=== PATIENT | female | born 1940 | race Asian ===

== ENCOUNTER 2017-09-16 15:50 | Observation (INO) | payer OTHER ==
[~2017-09-16] VITALS: Ht 152.4 cm; Wt 53.6 kg
[~2017-09-16 15:50] MED LIST: AMLO5TAB2 PO; ATOR-2 PO; CARV12.52 PO; CLON0.1T PO; CLONIDINE TP; DOXA2TAB9 PO; FLUO20CA8 PO; FOLI0.8T7 PO; FURO20TA3 PO; LOSA100T6 PO; OMEG1CAP6 PO; OMEP-110 PO; TEMA30CA PO; TUMS PO; VITAMIN D2 PO
[2017-09-16] MEDS ORDERED: SODIUM CHLORIDE 0.9% 1,000ML IVBOLUS ONE (17:00)
[2017-09-16] MEDS ORDERED: SODIUM CHLORIDE FLUSH 10ML SYR IVF ONE (17:00)
[2017-09-16 17:38] LABS: BASOPHILS # (AUTO) 0.01 x10^3/uL (0-0.1); BASOPHILS % (AUTO) 0 % (0-1); EOSINOPHILS # (AUTO) 0.08 x10^3/uL (0-0.4); EOSINOPHILS % (AUTO) 1 % (1-7); LYMPHOCYTES # (AUTO) 1.68 x10^3/uL (1-3.4); LYMPHOCYTES % (AUTO) 25 % (22-44); MD NO; MEAN CORPUSCULAR HEMOGLOBIN 31.6 pg (27.0-34.8); MEAN CORPUSCULAR HGB CONC 34.3 g/dL (32.4-35.8); MEAN CORPUSCULAR VOLUME 92.2 fL (80-100); MEAN PLATELET VOLUME 6.4 fL (7.4-10.4); MONOCYTES # (AUTO) 0.54 x10^3/uL (0.2-0.8); MONOCYTES % (AUTO) 8 % (2-9); NEUTROPHILS # (AUTO) 4.38 x10^3/uL (1.8-6.8); NEUTROPHILS % (AUTO) 65 % (42-75); PLATELET COUNT 330 x10^3/uL (130-400); RED BLOOD COUNT 3.67 x10^6/uL (3.82-5.3); RED CELL DISTRIBUTION WIDTH 17.1 % (9.6-15.2)
[2017-09-16 17:43] LABS: ALANINE AMINOTRANSFERASE 16 U/L (12-78); ALBUMIN 2.9 g/dL (3.4-5.0); ANION GAP 9 mmol/L (5-15); CALCIUM 8.1 mg/dL (8.5-10.1); CHLORIDE 100 mmol/L (98-107); CREATININE 4.13 mg/dL (0.55-1.02)
[2017-09-16 17:46] LABS: ALKALINE PHOSPHATASE 79 U/L (45-117); BILIRUBIN,TOTAL 0.3 mg/dL (0.2-1.0); TOTAL PROTEIN 7.3 g/dL (6.4-8.2); TROPONIN I < 0.015 ng/mL (0.000-0.045)
[2017-09-16] MEDS ORDERED: FLUO40CA2 PO (18:49)
[2017-09-16] MEDS ORDERED: CYAN10005 PO (18:49)
[2017-09-16] MEDS ORDERED: SEVE800T8 PO (18:49)
[2017-09-16] MEDS ORDERED: ZINC OXIDE PO (18:49)
[2017-09-16] MEDS ORDERED: ONDANSETRON ODT 4 MG PO PRN (19:30)
[2017-09-16] MEDS ORDERED: LABETALOL 5MG/ML, 20ML IVPush PRN (19:30)
[2017-09-16] MEDS ORDERED: DOCUSATE 100 MG CAPSULE PO PRN (19:30)
[2017-09-16] MEDS ORDERED: ONDANSETRON 2MG/ML, 2ML IVPush PRN (19:30)
[2017-09-16] MEDS ORDERED: ACETAMINOPHEN 325 MG TABLET PO PRN (19:30)
[2017-09-16] MEDS ORDERED: BISACODYL 10 MG SUPP PR PRN (19:30)
[2017-09-16 20:00] VITALS: BP 135/71
[2017-09-16 20:01] VITALS: BP 121/69
[2017-09-16 20:01] LABS: HEMOGLOBIN A1C 5.5 % (4.2-6.3)
[2017-09-16 20:05] VITALS: BP 114/67
[2017-09-16] MEDS: CARVEDILOL 12.5 MG TABLET PO SCH (20:29)
[2017-09-16] MEDS: SILVER SULF. CRM 1% , 25GM TP SCH (20:29)
[2017-09-16] MEDS: AMLODIPINE 5 MG TABLET PO SCH (20:29)
[2017-09-16] MEDS: TEMAZEPAM 30 MG CAPSULE PO SCH (20:29)
[2017-09-16 20:44] VITALS: BP 135/71
[2017-09-17] VITALS (10 sets, daily range): BP systolic 94–136; BP diastolic 58–70
[2017-09-17 01:25] LABS: CULTURE INDICATED? YES; MICROSCOPIC INDICATED
[2017-09-17 05:14] LABS: BASOPHILS # (AUTO) 0.03 x10^3/uL (0-0.1); BASOPHILS % (AUTO) 1 % (0-1); EOSINOPHILS # (AUTO) 0.16 x10^3/uL (0-0.4); EOSINOPHILS % (AUTO) 3 % (1-7); LYMPHOCYTES # (AUTO) 2.22 x10^3/uL (1-3.4); LYMPHOCYTES % (AUTO) 42 % (22-44); MD NO; MEAN CORPUSCULAR HEMOGLOBIN 31.5 pg (27.0-34.8); MEAN CORPUSCULAR HGB CONC 34.1 g/dL (32.4-35.8); MEAN CORPUSCULAR VOLUME 92.5 fL (80-100); MEAN PLATELET VOLUME 6.5 fL (7.4-10.4); MONOCYTES # (AUTO) 0.45 x10^3/uL (0.2-0.8); MONOCYTES % (AUTO) 9 % (2-9); NEUTROPHILS # (AUTO) 2.41 x10^3/uL (1.8-6.8); NEUTROPHILS % (AUTO) 46 % (42-75); PLATELET COUNT 289 x10^3/uL (130-400); RED BLOOD COUNT 3.21 x10^6/uL (3.82-5.3); RED CELL DISTRIBUTION WIDTH 17.3 % (9.6-15.2)
[2017-09-17 05:24] LABS: ANION GAP 8 mmol/L (5-15); CALCIUM 8.8 mg/dL (8.5-10.1); CHLORIDE 103 mmol/L (98-107); CREATININE 5.26 mg/dL (0.55-1.02)
[2017-09-17] MEDS: SEVELAMER CARBONATE 800MG TAB PO SCH ×3 (08:25→16:39)
[2017-09-17] MEDS: FLUOXETINE HCL 20 MG CAPSULE PO SCH (08:26)
[2017-09-17] MEDS: OMEPRAZOLE 20 MG CAPSULE.DR PO SCH (08:26)
[2017-09-17] MEDS: CARVEDILOL 12.5 MG TABLET PO SCH ×2 (08:26→20:35)
[2017-09-17] MEDS: AMLODIPINE 5 MG TABLET PO SCH ×2 (08:26→20:35)
[2017-09-17] MEDS: OMEGA-3/FISH OIL CAPSULE PO SCH (08:26)
[2017-09-17] MEDS: ZINC SULFATE 220 MG TAB PO SCH (08:26)
[2017-09-17] MEDS: FOLIC ACID 1 MG TABLET PO SCH (08:26)
[2017-09-17] MEDS: SENNA/DOCUSATE TABLET PO SCH (08:27)
[2017-09-17] MEDS: CYANOCOBALAMIN 1,000 MCG TABLET PO SCH (08:27)
[2017-09-17] MEDS: SILVER SULF. CRM 1% , 25GM TP SCH ×2 (08:59→20:35)
[2017-09-17] MEDS: TEMAZEPAM 30 MG CAPSULE PO SCH (20:34)
[2017-09-18 03:34] VITALS: BP 125/65
[2017-09-18 03:35] VITALS: BP 112/76
[2017-09-18 03:36] VITALS: BP 99/59
[2017-09-18 07:55] VITALS: BP_SYST 119; BP_SYST 126; BP_SYST 135; BP_DIAS 69; BP_DIAS 72
[2017-09-18] MEDS: SEVELAMER CARBONATE 800MG TAB PO SCH ×2 (08:36→12:00)
[2017-09-18] MEDS: OMEPRAZOLE 20 MG CAPSULE.DR PO SCH (08:36)
[2017-09-18] MEDS: FOLIC ACID 1 MG TABLET PO SCH (08:37)
[2017-09-18] MEDS: OMEGA-3/FISH OIL CAPSULE PO SCH (08:37)
[2017-09-18] MEDS: ZINC SULFATE 220 MG TAB PO SCH (08:37)
[2017-09-18] MEDS: CARVEDILOL 12.5 MG TABLET PO SCH (08:37)
[2017-09-18] MEDS: AMLODIPINE 5 MG TABLET PO SCH (08:37)
[2017-09-18] MEDS: CYANOCOBALAMIN 1,000 MCG TABLET PO SCH (08:37)
[2017-09-18] MEDS: SENNA/DOCUSATE TABLET PO SCH (08:37)
[2017-09-18] MEDS: FLUOXETINE HCL 20 MG CAPSULE PO SCH (08:37)
[2017-09-18] MEDS: SILVER SULF. CRM 1% , 25GM TP SCH (08:38)
== END 2017-09-18 14:25 | disposition home or self-care (01) ==
LOC: ED 18:18 → INTOOBSV 18:40 → EDIP 18:40 → 4WST 19:32
PROVIDERS: ADMIT Hospitalist; ATTEND Hospitalist
DX: R55 Syncope and collapse (principal); G90.9 Disorder of the autonomic nervous system, unspecified; N18.6 End stage renal disease; D63.8 Anemia in other chronic diseases classified elsewhere; E44.0 Moderate protein-calorie malnutrition; I12.0 Hypertensive chronic kidney disease with stage 5 chronic kidney disease or end stage renal disease; K21.9 Gastro-esophageal reflux disease without esophagitis; Z99.2 Dependence on renal dialysis; E88.09 Other disorders of plasma-protein metabolism, not elsewhere classified; F32.9 Major depressive disorder, single episode, unspecified; T24.002A Burn of unspecified degree of unspecified site of left lower limb, except ankle and foot, initial encounter; Y92.89 Other specified places as the place of occurrence of the external cause; Y93.89 Activity, other specified; Y99.8 Other external cause status
CPT/HCPCS: 36415; 70450; 71046; 80048; 80053; 81001; 82962; 83036; 83735; 84100; 84443; 84484; 85025; 87086; 93005; 93306; 93880; 99285; G0378; J7030

== ENCOUNTER → 2017-11-03 | Outpatient (CLI) | payer OTHER ==
[~2017-11-03] MED LIST changes: -AMLO5TAB2 PO; +AMLO5TAB7 PO; +CYAN10005 PO; +FLUO40CA2 PO; -LOSA100T6 PO; +LOSA100T7 PO; +SEVE800T8 PO; +ZINC OXIDE PO
== END | disposition home or self-care (01) ==
LOC: CFH 11:10
PROVIDERS: ATTEND Nurse Practitioner
DX: M81.0 Age-related osteoporosis without current pathological fracture (principal); N95.8 Other specified menopausal and perimenopausal disorders
CPT/HCPCS: 77080

== ENCOUNTER → 2017-12-29 | Outpatient (CLI) | payer MEDICARE, OTHER ==
[~2017-12-29] MED LIST changes: +ALEN70TA5 PO; +ASCO10004 PO; +CARV-39 PO; +CHOL10003 PO; +TRAZ-136 PO; +ZINC50TA28 PO
[2017-12-29 12:23] LABS: BASOPHILS # (AUTO) 0.03 x10^3/uL (0-0.1); BASOPHILS % (AUTO) 1 % (0-1); EOSINOPHILS # (AUTO) 0.35 x10^3/uL (0-0.4); EOSINOPHILS % (AUTO) 6 % (1-7); LYMPHOCYTES # (AUTO) 2.22 x10^3/uL (1-3.4); LYMPHOCYTES % (AUTO) 36 % (22-44); MD NO; MEAN CORPUSCULAR HEMOGLOBIN 31.3 pg (27.0-34.8); MEAN CORPUSCULAR HGB CONC 33.6 g/dL (32.4-35.8); MEAN CORPUSCULAR VOLUME 93.2 fL (80-100); MEAN PLATELET VOLUME 6.7 fL (7.4-10.4); MONOCYTES # (AUTO) 0.46 x10^3/uL (0.2-0.8); MONOCYTES % (AUTO) 7 % (2-9); NEUTROPHILS # (AUTO) 3.17 x10^3/uL (1.8-6.8); NEUTROPHILS % (AUTO) 51 % (42-75); PLATELET COUNT 283 x10^3/uL (130-400); RED BLOOD COUNT 3.84 x10^6/uL (3.82-5.3); RED CELL DISTRIBUTION WIDTH 14.6 % (9.6-15.2)
[2017-12-29 12:35] LABS: INTERNATIONAL NORMALIZED RATIO 0.96 (0.93-1.1)
[2017-12-29 12:37] LABS: ALBUMIN 3.4 g/dL (3.4-5.0); ANION GAP 8 mmol/L (5-15); CALCIUM 9.3 mg/dL (8.5-10.1); CHLORIDE 100 mmol/L (98-107)
[2017-12-29 12:40] LABS: ALANINE AMINOTRANSFERASE 19 U/L (12-78); ALKALINE PHOSPHATASE 88 U/L (45-117); BILIRUBIN,TOTAL 0.4 mg/dL (0.2-1.0); CREATININE 4.89 mg/dL (0.55-1.02)
== END | disposition home or self-care (01) ==
LOC: STAR 11:25
PROVIDERS: ATTEND Internal Medicine
DX: Z01.818 Encounter for other preprocedural examination (principal); R12 Heartburn; R19.7 Diarrhea, unspecified
CPT/HCPCS: 36415; 80053; 85025; 85610; 85730; 93005

== ENCOUNTER 2018-01-05 09:51 | Day surgery (SDC) | payer MEDICARE, OTHER ==
[2017-12-29 12:27] VITALS: BP 185/100
[~2018-01-05] VITALS: Ht 152.4 cm; Wt 48.5 kg
[2018-01-05] MEDS ORDERED: SODIUM CHLORIDE 0.9% 1,000 ML IV SCH (10:36)
[2018-01-05] MEDS ORDERED: CARVEDILOL 25 MG TABLET PO ONE (11:30)
[2018-01-05] MEDS ORDERED: MEPERIDINE/PF 25MG/0.5ML IVPush PRN (13:00)
[2018-01-05] MEDS ORDERED: HALOPERIDOL 5 MG/ML IV PRN (13:00)
[2018-01-05] MEDS ORDERED: OXYcodone 5 MG/5 ML ORAL.SOL UDC PO PRN (13:00)
[2018-01-05] MEDS ORDERED: PROMETHAZINE 12.5 MG SUPP PR PRN (13:00)
[2018-01-05] MEDS ORDERED: MIDAZOLAM 1 MG/ML, 2ML IV PRN (13:00)
[2018-01-05] MEDS ORDERED: PROMETHAZINE 25 MG/ML, 1ML IV PRN (13:00)
[2018-01-05] MEDS ORDERED: hydrALAzine 20 MG/ML, 1ML IV PRN (13:00)
[2018-01-05] MEDS ORDERED: ALBUTEROL SULFATE 2.5 MG/3 ML NPPB PRN (13:00)
[2018-01-05] MEDS ORDERED: FENTANYL PF 100 MCG/2ML IV PRN (13:00)
[2018-01-05] MEDS ORDERED: EPHEDRINE 50 MG/ML, 1ML IVPush PRN (13:00)
[2018-01-05] MEDS ORDERED: LABETALOL 5MG/ML, 20ML IV PRN (13:00)
[2018-01-05] MEDS ORDERED: ACETAMINOPHEN 325 MG TABLET PO PRN (13:00)
[2018-01-05] MEDS ORDERED: ONDANSETRON 2MG/ML, 2ML IV PRN (13:00)
[2018-01-05] MEDS ORDERED: ONDANSETRON ODT 8 MG PO PRN (13:00)
[2018-01-05] MEDS ORDERED: HYDROmorphone 1 MG/ML, 1ML IV PRN (13:00)
[2018-01-05] MEDS ORDERED: LORazepam 2 MG/ML, 1ML IVPush PRN (13:00)
[2018-01-05] MEDS ORDERED: PROPOFOL 10 MG/ML, 20ML ONE (15:20)
== END 2018-01-05 13:40 | disposition home or self-care (01) ==
LOC: OUT 09:51
PROVIDERS: ATTEND Internal Medicine
DX: K31.89 Other diseases of stomach and duodenum (principal); K21.9 Gastro-esophageal reflux disease without esophagitis; I10 Essential (primary) hypertension; F31.9 Bipolar disorder, unspecified; E78.5 Hyperlipidemia, unspecified; Z98.890 Other specified postprocedural states
CPT/HCPCS: 43239; 45380; 88305; J2704; J7030

== ENCOUNTER 2019-03-02 23:02 | Observation (INO) | payer MEDICARE ==
[~2019-03-02] VITALS: Ht 152.4 cm; Wt 53.3 kg
[~2019-03-02 23:02] MED LIST changes: -ALEN70TA5 PO; +ALEN70TA6 PO; +AMLO-150 PO; -AMLO5TAB7 PO; -CLON0.1T PO; +CLON0.1T22 PO; +CYAN-27 PO; -CYAN10005 PO; +FLUO20CA23 PO; -FLUO20CA8 PO; +LOSA100T14 PO; -LOSA100T7 PO; -TRAZ-136 PO; +TRAZ50TA66 PO; -ZINC50TA28 PO; +ZINC50TA44 PO
[2019-03-02] MEDS ORDERED: CINA30TA2 PO (23:33)
[2019-03-02] MEDS ORDERED: FOLI0.8T35 PO (23:34)
[2019-03-02] MEDS ORDERED: MONT10TA11 PO (23:35)
[2019-03-02] MEDS ORDERED: SEVE800T8 PO (23:35)
[2019-03-02] MEDS ORDERED: BUDE10.22 INH (23:37)
--- NOTE | 2019-03-02 23:37 | NUR ---
THIS IS A 78 YO FEMALE COMING IN FOR HTN AFTER DIALYSIS TODAY, AND STATEMENTS OF SI, PATIENT STATES "I WANT TO TAKE ALL MY PILLS, AND I JUST FEEL DEPRESSED". PATIENT HAS HX OF SA 20 YEARS AGO. PER PATIENT'S SON, "SHE LOST HER A COUPLE YEARS AGO AND LIVES WITH US NOW, SHE'S JUST BEEN RESTLESS AND KIND OF OUT OF IT. SHE SEEMS CONFUSED TOO". PATIENT ADMITS TO HEARING VOICES, BUT STATES "THEY'RE TELLING ME GOOD THINGS". 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 HX KIDNEY FAILURE, PATIENT HAS BEEN ON DIALYSIS FOR PAST 4 YEARS, CURRENTLY HAS IT DONE EVERY MWF. PATIENT WAS HYPERTENSIVE IN TRIAGE, OTHERWISE VSS, NAD. PATIENT BELONGINGS PLACED IN TWO BELONGINGS BAG AND PUT IN LOCKED STORAGE. PATIENT IN GOWN, GIVEN WARM BLANKET. EDUCATED ON NEED FOR URINE SAMPLE. SITTER AT DOOR.
[2019-03-02 23:48] LABS: BASOPHILS # (AUTO) 0.03 x10^3/uL (0-0.1); BASOPHILS % (AUTO) 1 % (0-1); EOSINOPHILS # (AUTO) 0.25 x10^3/uL (0-0.4); EOSINOPHILS % (AUTO) 4 % (1-7); LYMPHOCYTES # (AUTO) 1.22 x10^3/uL (1-3.4); LYMPHOCYTES % (AUTO) 19 % (22-44); MD NO; MEAN CORPUSCULAR HEMOGLOBIN 31.4 pg (27.0-34.8); MEAN CORPUSCULAR HGB CONC 33.6 g/dL (32.4-35.8); MEAN CORPUSCULAR VOLUME 93.5 fL (80-100); MEAN PLATELET VOLUME 6.2 fL (7.4-10.4); MONOCYTES # (AUTO) 0.66 x10^3/uL (0.2-0.8); MONOCYTES % (AUTO) 10 % (2-9); NEUTROPHILS # (AUTO) 4.23 x10^3/uL (1.8-6.8); NEUTROPHILS % (AUTO) 66 % (42-75); PLATELET COUNT 238 x10^3/uL (130-400); RED BLOOD COUNT 3.02 x10^6/uL (3.82-5.3)
[2019-03-02 23:53] LABS: ALANINE AMINOTRANSFERASE 30 U/L (12-78); ALBUMIN 3.1 g/dL (3.4-5.0); ANION GAP 7 mmol/L (5-15); CALCIUM 9.4 mg/dL (8.5-10.1); CHLORIDE 98 mmol/L (98-107); CREATININE 3.87 mg/dL (0.55-1.02)
[2019-03-03 00:03] LABS: ALKALINE PHOSPHATASE 57 U/L (45-117); BILIRUBIN,TOTAL 0.3 mg/dL (0.2-1.0); TOTAL PROTEIN 7.3 g/dL (6.4-8.2)
--- NOTE | 2019-03-03 00:23 | NUR ---
UA SENT. PIV PLACED
[2019-03-03 00:30] LABS: MICROSCOPIC AUTO
[2019-03-03 00:37] LABS: CULTURE INDICATED? NO
[2019-03-03 00:46] LABS: AMPHETAMINE SCREEN, URINE Negative (Negative); BARBITURATE SCREEN, URINE Negative (Negative); BENZODIAZEPINE SCREEN, URINE Negative (Negative); CANNABINOID SCREEN, URINE Negative (Negative); COCAINE SCREEN, URINE Negative (Negative); METHADONE SCREEN, URINE Negative (Negative); OPIATE SCREEN, URINE Negative (Negative)
[2019-03-03] MEDS ORDERED: ONDANSETRON ODT 4 MG PO PRN (01:00)
[2019-03-03] MEDS ORDERED: hydrALAzine 20 MG/ML, 1ML IVPush PRN (01:00)
[2019-03-03] MEDS ORDERED: TRAZODONE 50MG TABLET PO SCH (01:00)
[2019-03-03] MEDS ORDERED: BISACODYL 10 MG SUPP PR PRN (01:00)
--- NOTE | 2019-03-03 01:02 | NUR ---
REPORT GIVEN TO MARCUS MATSON. PLAN OF CARE DISCUSSED. Addendum: 03/03/19 at 0103 by DEXTER CHARTED UNDER WRONG USER. CORRECTION: REPORT GIVEN TO MARCUS MATSON BY MARCUS COWAN. PLAN OF CARE DISCUSSED.
--- NOTE | 2019-03-03 01:05 | NUR ---
CALL PLACED TO SON TO INFORM HIM OF MOTHERS ADMITTING ROOM NUMBER
[2019-03-03 01:34] VITALS: BP 197/68
[2019-03-03] MEDS: LORazepam 0.5MG TABLET PO PRN ×3 (01:54→22:08)
[2019-03-03 02:46] VITALS: BP 181/62
[2019-03-03 03:33] VITALS: BP 157/61
[2019-03-03] MEDS: HEPARIN 5,000 UNITS/ML, 1ML SQ SCH ×2 (06:04→17:45)
[2019-03-03] MEDS: SEVELAMER CARBONATE 800MG TAB PO SCH ×7 (06:11→21:11)
[2019-03-03] MEDS ORDERED: ALENDRONATE 70 MG TABLET PO SCH (06:30)
[2019-03-03 08:01] VITALS: BP 174/67
[2019-03-03] MEDS: MONTELUKAST 10 MG TABLET PO SCH (08:02)
[2019-03-03] MEDS: OMEGA-3/FISH OIL CAPSULE PO SCH (08:02)
[2019-03-03] MEDS: FLUOXETINE HCL 20 MG CAPSULE PO SCH (08:02)
[2019-03-03] MEDS: CHOLECALCIFEROL 1,000 UNIT TABLET PO SCH (08:02)
[2019-03-03] MEDS: AMLODIPINE 5 MG TABLET PO SCH ×2 (08:02→21:11)
[2019-03-03] MEDS: CYANOCOBALAMIN 1,000 MCG TABLET PO SCH (08:02)
[2019-03-03] MEDS ORDERED: CARVEDILOL 25 MG TABLET PO SCH (09:00)
[2019-03-03] MEDS: ZINC SULFATE 220 MG CAPSULE PO SCH (12:48)
[2019-03-03 13:52] VITALS: BP 136/64
[2019-03-03 16:41] LABS: ANION GAP 5 mmol/L (5-15); CALCIUM 9.6 mg/dL (8.5-10.1); CHLORIDE 102 mmol/L (98-107); CREATININE 5.18 mg/dL (0.55-1.02)
[2019-03-03] MEDS ORDERED: ARANESP 60 MCG/ML **ESRD SQ SCH (18:00)
[2019-03-03] MEDS: ACETAMINOPHEN 325 MG TABLET PO PRN (20:45)
[2019-03-03] MEDS: QUETIAPINE 100MG TABLET PO SCH (21:12)
[2019-03-03 21:45] VITALS: BP 138/66
[2019-03-03] MEDS ORDERED: ALBUTEROL SULFATE 2.5 MG/3 ML ONE (22:15)
[2019-03-03] MEDS ORDERED: ALBUTEROL SULFATE 2.5 MG/3 ML NPPB PRN (22:30)
[2019-03-04] MEDS: HEPARIN 5,000 UNITS/ML, 1ML SQ SCH ×3 (02:04→21:43)
[2019-03-04] MEDS: LORazepam 0.5MG TABLET PO PRN (02:04)
[2019-03-04 02:11] VITALS: BP 154/62
[2019-03-04] MEDS: SEVELAMER CARBONATE 800MG TAB PO SCH ×5 (06:00→21:42)
[2019-03-04] MEDS ORDERED: ALBUTEROL/IPRATROPIUM 2.5MG/0.5MG, 3 ML NPPB SCH (07:00)
[2019-03-04] MEDS: BUDESONIDE 0.5 MG/2 ML INHA NPPB SCH ×2 (07:05→18:20)
[2019-03-04 07:07] LABS: BASOPHILS # (AUTO) 0.02 x10^3/uL (0-0.1); BASOPHILS % (AUTO) 0 % (0-1); EOSINOPHILS # (AUTO) 0.44 x10^3/uL (0-0.4); EOSINOPHILS % (AUTO) 7 % (1-7); LYMPHOCYTES # (AUTO) 1.92 x10^3/uL (1-3.4); LYMPHOCYTES % (AUTO) 32 % (22-44); MD NO; MEAN CORPUSCULAR HEMOGLOBIN 31.3 pg (27.0-34.8); MEAN CORPUSCULAR HGB CONC 32.8 g/dL (32.4-35.8); MEAN CORPUSCULAR VOLUME 95.5 fL (80-100); MONOCYTES # (AUTO) 0.65 x10^3/uL (0.2-0.8); MONOCYTES % (AUTO) 11 % (2-9); NEUTROPHILS # (AUTO) 2.95 x10^3/uL (1.8-6.8); NEUTROPHILS % (AUTO) 49 % (42-75); PLATELET COUNT 253 x10^3/uL (130-400); RED BLOOD COUNT 2.73 x10^6/uL (3.82-5.3); RED CELL DISTRIBUTION WIDTH 16.5 % (9.6-15.2)
[2019-03-04 07:16] LABS: ANION GAP 7 mmol/L (5-15); CALCIUM 9.8 mg/dL (8.5-10.1); CHLORIDE 103 mmol/L (98-107)
[2019-03-04 08:35] VITALS: BP 171/70
[2019-03-04] MEDS: CHOLECALCIFEROL 1,000 UNIT TABLET PO SCH (08:55)
[2019-03-04] MEDS: CYANOCOBALAMIN 1,000 MCG TABLET PO SCH (08:55)
[2019-03-04] MEDS: FLUOXETINE HCL 20 MG CAPSULE PO SCH (08:55)
[2019-03-04] MEDS: ZINC SULFATE 220 MG CAPSULE PO SCH (08:55)
[2019-03-04] MEDS: OMEGA-3/FISH OIL CAPSULE PO SCH (08:55)
[2019-03-04] MEDS: CARVEDILOL 25 MG TABLET PO SCH ×2 (08:56→21:42)
[2019-03-04] MEDS: AMLODIPINE 5 MG TABLET PO SCH ×2 (08:56→21:43)
[2019-03-04] MEDS: MONTELUKAST 10 MG TABLET PO SCH (11:14)
[2019-03-04 12:48] VITALS: BP 145/64
[2019-03-04] MEDS: ALBUTEROL/IPRATROPIUM 2.5MG/0.5MG, 3 ML NPPB SCH (18:20)
[2019-03-04 21:41] VITALS: BP 150/76
[2019-03-04] MEDS: QUETIAPINE 100MG TABLET PO SCH (21:43)
[2019-03-05] MEDS: ACETAMINOPHEN 325 MG TABLET PO PRN ×2 (01:24→10:00)
[2019-03-05 01:59] VITALS: BP 132/57
[2019-03-05] MEDS: HEPARIN 5,000 UNITS/ML, 1ML SQ SCH ×2 (06:04→15:29)
[2019-03-05 06:26] LABS: BASOPHILS # (AUTO) 0.02 x10^3/uL (0-0.1); BASOPHILS % (AUTO) 0 % (0-1); EOSINOPHILS % (AUTO) 6 % (1-7); LYMPHOCYTES # (AUTO) 2.03 x10^3/uL (1-3.4); LYMPHOCYTES % (AUTO) 28 % (22-44); MD NO; MEAN CORPUSCULAR HEMOGLOBIN 31.3 pg (27.0-34.8); MEAN CORPUSCULAR HGB CONC 32.9 g/dL (32.4-35.8); MEAN CORPUSCULAR VOLUME 95.2 fL (80-100); MEAN PLATELET VOLUME 6.1 fL (7.4-10.4); MONOCYTES # (AUTO) 0.75 x10^3/uL (0.2-0.8); MONOCYTES % (AUTO) 10 % (2-9); NEUTROPHILS # (AUTO) 4.09 x10^3/uL (1.8-6.8); NEUTROPHILS % (AUTO) 56 % (42-75); PLATELET COUNT 257 x10^3/uL (130-400); RED BLOOD COUNT 2.52 x10^6/uL (3.82-5.3); RED CELL DISTRIBUTION WIDTH 16.9 % (9.6-15.2)
[2019-03-05 06:29] LABS: ALBUMIN 2.6 g/dL (3.4-5.0); ANION GAP 8 mmol/L (5-15); CALCIUM 9.3 mg/dL (8.5-10.1); CHLORIDE 102 mmol/L (98-107)
[2019-03-05 06:34] LABS: % IRON SATURATION 12 % (20-55); ALANINE AMINOTRANSFERASE 26 U/L (12-78); ALKALINE PHOSPHATASE 41 U/L (45-117); BILIRUBIN,TOTAL 0.3 mg/dL (0.2-1.0); CREATININE 7.49 mg/dL (0.55-1.02); IRON LEVEL 22 mcg/dL (50-170); TOTAL IRON BINDING CAPACITY 184 mcg/dL (250-450); TOTAL PROTEIN 6.1 g/dL (6.4-8.2)
[2019-03-05] MEDS: SEVELAMER CARBONATE 800MG TAB PO SCH ×3 (08:00→15:55)
[2019-03-05 09:00] VITALS: BP 146/64
[2019-03-05] MEDS ORDERED: LISINOPRIL 10 MG TABLET PO SCH (09:00)
[2019-03-05] MEDS: ALBUTEROL/IPRATROPIUM 2.5MG/0.5MG, 3 ML NPPB SCH (09:00)
[2019-03-05] MEDS: BUDESONIDE 0.5 MG/2 ML INHA NPPB SCH (09:00)
[2019-03-05] MEDS: CHOLECALCIFEROL 1,000 UNIT TABLET PO SCH (12:43)
[2019-03-05] MEDS: FLUOXETINE HCL 20 MG CAPSULE PO SCH (12:44)
[2019-03-05] MEDS: MONTELUKAST 10 MG TABLET PO SCH (12:44)
[2019-03-05] MEDS: OMEGA-3/FISH OIL CAPSULE PO SCH (12:44)
[2019-03-05] MEDS: AMLODIPINE 5 MG TABLET PO SCH (12:44)
[2019-03-05] MEDS: CARVEDILOL 25 MG TABLET PO SCH (12:44)
[2019-03-05] MEDS: ZINC SULFATE 220 MG CAPSULE PO SCH (12:44)
[2019-03-05] MEDS: CYANOCOBALAMIN 1,000 MCG TABLET PO SCH (12:44)
[2019-03-05 14:26] VITALS: BP 116/63
[2019-03-05] MEDS ORDERED: CARV25TA12 PO (16:35)
[2019-03-05] MEDS ORDERED: DARB60VI SQ (16:35)
[2019-03-05] MEDS ORDERED: LISI-167 PO (16:35)
[2019-03-05] MEDS ORDERED: QUET100T PO (16:35)
[2019-03-12] MEDS ORDERED: FLUO20CA23 PO (13:12)
[2019-03-12] MEDS ORDERED: ROPI0.5T4 PO (13:12)
[2019-03-16] MEDS ORDERED: HYDR50TA99 PO (10:44)
== END 2019-03-05 18:00 ==
LOC: ED 03-03 00:28 → EDIP 03-03 00:46 → INTOOBSV 03-03 00:46 → 4EST 03-03 01:26
PROVIDERS: ADMIT Family Medicine; ATTEND Hospitalist
PROC: 5A1D70Z Performance of Urinary Filtration, Intermittent, Less than 6 Hours Per Day (ICD-10-PCS; principal; 2019-03-05)
DX: F33.3 Major depressive disorder, recurrent, severe with psychotic symptoms (principal); R45.851 Suicidal ideations; I13.11 Hypertensive heart and chronic kidney disease without heart failure, with stage 5 chronic kidney disease, or end stage renal disease; N18.6 End stage renal disease; D63.1 Anemia in chronic kidney disease; J45.909 Unspecified asthma, uncomplicated; M81.0 Age-related osteoporosis without current pathological fracture; N25.0 Renal osteodystrophy; Z79.899 Other long term (current) drug therapy; Z91.5 Personal history of self-harm; Z99.2 Dependence on renal dialysis
CPT/HCPCS: 36415; 80048; 80053; 80307; 81001; 82306; 82728; 83540; 83550; 83735; 83970; 84100; 84443; 84550; 85025; 86705; 86706; 87340; 94640; 96372; 96374; 99285; G0378; J0360; J0882; J1644; J7620; J7626; Q0162; 90935

== ENCOUNTER 2019-03-05 16:04 | Inpatient (IN) | payer MEDICARE ==
[~2019-03-05] VITALS: Ht 152.4 cm; Wt 50.1 kg
[~2019-03-05 16:04] MED LIST changes: +BUDE10.22 INH; +CINA30TA2 PO; -FLUO20CA23 PO; +FLUO20CA8 PO; +FOLI0.8T35 PO; +MONT10TA9 PO
[2019-03-05] MEDS ORDERED: LISI-167 PO (16:35)
[2019-03-05] MEDS ORDERED: QUET100T PO (16:35)
[2019-03-05] MEDS ORDERED: DARB60VI SQ (16:35)
[2019-03-05] MEDS ORDERED: CARV25TA12 PO (16:35)
[2019-03-05] MEDS ORDERED: ONDANSETRON ODT 4 MG PO PRN ×2 (17:30)
[2019-03-05] MEDS ORDERED: DOCUSATE 100 MG CAPSULE PO PRN (17:30)
[2019-03-05] MEDS ORDERED: BISACODYL 10 MG SUPP PR PRN (17:30)
[2019-03-05] MEDS ORDERED: PLEASE ENTER HEIGHT AND WEIGHT MC SCH (18:30)
[2019-03-05 19:55] VITALS: BP 127/62
[2019-03-05] MEDS: SEVELAMER CARBONATE 800MG TAB PO SCH ×2 (20:56→21:14)
[2019-03-05] MEDS: AMLODIPINE 5 MG TABLET PO SCH (20:56)
[2019-03-05] MEDS: QUETIAPINE 200 MG TABLET PO SCH (20:56)
[2019-03-05] MEDS: ALBUTEROL/IPRATROPIUM 2.5MG/0.5MG, 3 ML NPPB SCH (21:27)
[2019-03-05] MEDS: BUDESONIDE 0.5 MG/2 ML INHA INH SCH (21:28)
[2019-03-05 22:27] VITALS: BP 127/62
[2019-03-05] MEDS: LORazepam 0.5MG TABLET PO PRN (22:51)
[2019-03-06] MEDS: HEPARIN 5,000 UNITS/ML, 1ML SQ SCH ×2 (02:00→09:31)
[2019-03-06] MEDS: SEVELAMER CARBONATE 800MG TAB PO SCH ×5 (06:41→21:13)
[2019-03-06 07:36] VITALS: BP 155/63
[2019-03-06] MEDS: ACETAMINOPHEN 325 MG TABLET PO PRN ×2 (07:49→19:47)
[2019-03-06] MEDS: ALBUTEROL/IPRATROPIUM 2.5MG/0.5MG, 3 ML NPPB SCH ×2 (09:00→20:50)
[2019-03-06] MEDS ORDERED: FLUOXETINE HCL 20 MG CAPSULE PO SCH (09:00)
[2019-03-06] MEDS: BUDESONIDE 0.5 MG/2 ML INHA INH SCH ×2 (09:00→20:50)
[2019-03-06] MEDS: OMEGA-3/FISH OIL CAPSULE PO SCH (09:01)
[2019-03-06] MEDS: CHOLECALCIFEROL 1,000 UNIT TABLET PO SCH (09:01)
[2019-03-06] MEDS: CYANOCOBALAMIN 1,000 MCG TABLET PO SCH (09:01)
[2019-03-06] MEDS: AMLODIPINE 5 MG TABLET PO SCH ×2 (09:01→21:13)
[2019-03-06] MEDS: LISINOPRIL 10 MG TABLET PO SCH (09:01)
[2019-03-06] MEDS: MONTELUKAST 10 MG TABLET PO SCH (09:01)
[2019-03-06] MEDS: CARVEDILOL 25 MG TABLET PO SCH ×2 (09:04→18:02)
[2019-03-06] MEDS: ZINC SULFATE 220 MG CAPSULE PO SCH (09:30)
[2019-03-06 19:15] VITALS: BP 151/85
[2019-03-06] MEDS: ROPINIROLE 0.5MG TABLET PO SCH (21:13)
[2019-03-06] MEDS: QUETIAPINE 200 MG TABLET PO SCH (21:14)
[2019-03-07] MEDS: CARVEDILOL 25 MG TABLET PO SCH ×2 (05:43→18:07)
[2019-03-07] MEDS: SEVELAMER CARBONATE 800MG TAB PO SCH ×5 (05:44→20:24)
[2019-03-07 07:08] VITALS: BP 151/66
[2019-03-07] MEDS: AMLODIPINE 5 MG TABLET PO SCH ×2 (11:00→20:24)
[2019-03-07] MEDS: LISINOPRIL 10 MG TABLET PO SCH (11:00)
[2019-03-07 11:59] VITALS: BP 113/65
[2019-03-07] MEDS: CYANOCOBALAMIN 1,000 MCG TABLET PO SCH (13:00)
[2019-03-07] MEDS: OMEGA-3/FISH OIL CAPSULE PO SCH (13:01)
[2019-03-07] MEDS: MONTELUKAST 10 MG TABLET PO SCH (13:01)
[2019-03-07] MEDS: FLUOXETINE HCL 20 MG CAPSULE PO SCH (13:01)
[2019-03-07] MEDS: CHOLECALCIFEROL 1,000 UNIT TABLET PO SCH (13:01)
[2019-03-07] MEDS: ZINC SULFATE 220 MG CAPSULE PO SCH (13:01)
[2019-03-07] MEDS: ALBUTEROL/IPRATROPIUM 2.5MG/0.5MG, 3 ML NPPB SCH ×2 (13:58→21:00)
[2019-03-07] MEDS: BUDESONIDE 0.5 MG/2 ML INHA INH SCH ×2 (13:58→21:00)
[2019-03-07 18:07] VITALS: BP 135/66
[2019-03-07 19:15] VITALS: BP 136/62
[2019-03-07] MEDS: QUETIAPINE 200 MG TABLET PO SCH (20:24)
[2019-03-07] MEDS: ROPINIROLE 0.5MG TABLET PO SCH (20:24)
[2019-03-08] MEDS: SEVELAMER CARBONATE 800MG TAB PO SCH ×5 (06:05→20:03)
[2019-03-08] MEDS: CARVEDILOL 25 MG TABLET PO SCH ×2 (06:05→18:21)
[2019-03-08 06:24] LABS: ALBUMIN 2.7 g/dL (3.4-5.0); ANION GAP 6 mmol/L (5-15); CALCIUM 9.9 mg/dL (8.5-10.1); CHLORIDE 102 mmol/L (98-107)
[2019-03-08 06:25] LABS: CREATININE 4.91 mg/dL (0.55-1.02)
[2019-03-08 07:41] VITALS: BP 169/62
[2019-03-08] MEDS: BUDESONIDE 0.5 MG/2 ML INHA INH SCH ×2 (09:35→21:00)
[2019-03-08] MEDS: ALBUTEROL/IPRATROPIUM 2.5MG/0.5MG, 3 ML NPPB SCH ×2 (09:35→21:00)
[2019-03-08] MEDS: OMEGA-3/FISH OIL CAPSULE PO SCH (10:02)
[2019-03-08] MEDS: AMLODIPINE 5 MG TABLET PO SCH ×2 (10:02→20:03)
[2019-03-08] MEDS: ZINC SULFATE 220 MG CAPSULE PO SCH (10:03)
[2019-03-08] MEDS: FLUOXETINE HCL 20 MG CAPSULE PO SCH (10:03)
[2019-03-08] MEDS: CHOLECALCIFEROL 1,000 UNIT TABLET PO SCH (10:03)
[2019-03-08] MEDS: MONTELUKAST 10 MG TABLET PO SCH (10:03)
[2019-03-08] MEDS: CYANOCOBALAMIN 1,000 MCG TABLET PO SCH (10:04)
[2019-03-08] MEDS: LISINOPRIL 10 MG TABLET PO SCH (10:06)
[2019-03-08 17:35] VITALS: BP 156/73
[2019-03-08 19:33] VITALS: BP 16/77
[2019-03-08] MEDS: QUETIAPINE 200 MG TABLET PO SCH (20:03)
[2019-03-08] MEDS: ROPINIROLE 0.5MG TABLET PO SCH (20:03)
[2019-03-09] MEDS: ACETAMINOPHEN 325 MG TABLET PO PRN (01:45)
[2019-03-09] MEDS: SEVELAMER CARBONATE 800MG TAB PO SCH ×5 (06:02→20:36)
[2019-03-09] MEDS: CARVEDILOL 25 MG TABLET PO SCH ×2 (06:02→17:11)
[2019-03-09 07:32] VITALS: BP 149/53
[2019-03-09] MEDS: BUDESONIDE 0.5 MG/2 ML INHA INH SCH ×2 (09:00→21:20)
[2019-03-09] MEDS: ALBUTEROL/IPRATROPIUM 2.5MG/0.5MG, 3 ML NPPB SCH ×2 (09:00→21:20)
[2019-03-09] MEDS: AMLODIPINE 5 MG TABLET PO SCH ×2 (09:33→20:36)
[2019-03-09] MEDS: MONTELUKAST 10 MG TABLET PO SCH (09:33)
[2019-03-09] MEDS: OMEGA-3/FISH OIL CAPSULE PO SCH (09:33)
[2019-03-09] MEDS: LISINOPRIL 10 MG TABLET PO SCH (09:33)
[2019-03-09] MEDS: FLUOXETINE HCL 20 MG CAPSULE PO SCH (09:33)
[2019-03-09] MEDS: ZINC SULFATE 220 MG CAPSULE PO SCH (09:34)
[2019-03-09] MEDS: CYANOCOBALAMIN 1,000 MCG TABLET PO SCH (09:34)
[2019-03-09] MEDS: CHOLECALCIFEROL 1,000 UNIT TABLET PO SCH (09:34)
[2019-03-09 16:56] VITALS: BP 119/71
[2019-03-09 19:41] VITALS: BP 113/61
[2019-03-09] MEDS: QUETIAPINE 200 MG TABLET PO SCH (20:36)
[2019-03-09] MEDS: ROPINIROLE 0.5MG TABLET PO SCH (20:36)
[2019-03-10] MEDS: ACETAMINOPHEN 325 MG TABLET PO PRN (00:15)
[2019-03-10] MEDS: SEVELAMER CARBONATE 800MG TAB PO SCH ×5 (06:00→21:00)
[2019-03-10] MEDS: CARVEDILOL 25 MG TABLET PO SCH ×2 (06:01→18:15)
[2019-03-10 07:20] VITALS: BP 111/70
[2019-03-10] MEDS: ZINC SULFATE 220 MG CAPSULE PO SCH (08:37)
[2019-03-10] MEDS: CYANOCOBALAMIN 1,000 MCG TABLET PO SCH (08:37)
[2019-03-10] MEDS: MONTELUKAST 10 MG TABLET PO SCH (08:38)
[2019-03-10] MEDS: CHOLECALCIFEROL 1,000 UNIT TABLET PO SCH (08:38)
[2019-03-10] MEDS: FLUOXETINE HCL 20 MG CAPSULE PO SCH (08:38)
[2019-03-10] MEDS: OMEGA-3/FISH OIL CAPSULE PO SCH (08:38)
[2019-03-10] MEDS: AMLODIPINE 5 MG TABLET PO SCH ×2 (08:38→22:22)
[2019-03-10] MEDS: LISINOPRIL 10 MG TABLET PO SCH (08:38)
[2019-03-10] MEDS: ALBUTEROL/IPRATROPIUM 2.5MG/0.5MG, 3 ML NPPB SCH ×2 (09:10→21:00)
[2019-03-10] MEDS: BUDESONIDE 0.5 MG/2 ML INHA INH SCH ×2 (09:10→21:00)
[2019-03-10] MEDS: POLYETHYLENE GLYCOL 17 GM PACKET PO PRN (14:54)
[2019-03-10] MEDS ORDERED: DARBEPOETIN 60 MCG/ML SQ SCH ×2 (17:30→18:30)
[2019-03-10 18:13] VITALS: BP 145/70
[2019-03-10] MEDS ORDERED: QUETIAPINE 25MG TABLET PO SCH (21:00)
[2019-03-10] MEDS ORDERED: QUETIAPINE 200 MG TABLET PO SCH (21:00)
[2019-03-10] MEDS: ROPINIROLE 0.5MG TABLET PO SCH (22:20)
[2019-03-11] MEDS: LORazepam 0.5MG TABLET PO PRN ×2 (00:44→21:16)
[2019-03-11 06:00] VITALS: BP 151/64
[2019-03-11] MEDS: CARVEDILOL 25 MG TABLET PO SCH ×2 (06:27→17:58)
[2019-03-11 07:17] VITALS: BP 145/56
[2019-03-11] MEDS: AMLODIPINE 5 MG TABLET PO SCH ×2 (08:25→19:57)
[2019-03-11] MEDS: ZINC SULFATE 220 MG CAPSULE PO SCH (08:25)
[2019-03-11] MEDS: OMEGA-3/FISH OIL CAPSULE PO SCH (08:25)
[2019-03-11] MEDS: SEVELAMER CARBONATE 800MG TAB PO SCH ×5 (08:25→19:57)
[2019-03-11] MEDS: CYANOCOBALAMIN 1,000 MCG TABLET PO SCH (08:25)
[2019-03-11] MEDS: CHOLECALCIFEROL 1,000 UNIT TABLET PO SCH (08:25)
[2019-03-11] MEDS: FLUOXETINE HCL 20 MG CAPSULE PO SCH (08:26)
[2019-03-11] MEDS: LISINOPRIL 10 MG TABLET PO SCH (08:26)
[2019-03-11] MEDS: MONTELUKAST 10 MG TABLET PO SCH (08:26)
[2019-03-11] MEDS: ALBUTEROL/IPRATROPIUM 2.5MG/0.5MG, 3 ML NPPB SCH ×2 (09:00→21:14)
[2019-03-11] MEDS: BUDESONIDE 0.5 MG/2 ML INHA INH SCH ×2 (09:00→21:14)
[2019-03-11] MEDS: ACETAMINOPHEN 325 MG TABLET PO PRN (11:15)
[2019-03-11 19:45] VITALS: BP 147/67
[2019-03-11] MEDS: ROPINIROLE 0.5MG TABLET PO SCH (19:57)
[2019-03-11] MEDS: POLYETHYLENE GLYCOL 17 GM PACKET PO PRN (19:57)
[2019-03-12] MEDS: SEVELAMER CARBONATE 800MG TAB PO SCH ×3 (05:51→14:16)
[2019-03-12] MEDS: CARVEDILOL 25 MG TABLET PO SCH (05:52)
[2019-03-12 06:09] LABS: CHLORIDE 98 mmol/L (98-107)
[2019-03-12 06:13] LABS: ALBUMIN 2.9 g/dL (3.4-5.0); ANION GAP 12 mmol/L (5-15); CALCIUM 9.7 mg/dL (8.5-10.1); CREATININE 7.68 mg/dL (0.55-1.02)
[2019-03-12] MEDS ORDERED: ALENDRONATE 70 MG TABLET PO SCH (06:30)
[2019-03-12] MEDS: OMEGA-3/FISH OIL CAPSULE PO SCH (07:36)
[2019-03-12] MEDS: CYANOCOBALAMIN 1,000 MCG TABLET PO SCH (07:36)
[2019-03-12] MEDS: ZINC SULFATE 220 MG CAPSULE PO SCH (07:36)
[2019-03-12] MEDS: CHOLECALCIFEROL 1,000 UNIT TABLET PO SCH (07:36)
[2019-03-12] MEDS: LISINOPRIL 10 MG TABLET PO SCH (07:36)
[2019-03-12] MEDS: MONTELUKAST 10 MG TABLET PO SCH (07:36)
[2019-03-12] MEDS: AMLODIPINE 5 MG TABLET PO SCH (07:36)
[2019-03-12] MEDS: FLUOXETINE HCL 20 MG CAPSULE PO SCH (07:36)
[2019-03-12 07:44] VITALS: BP 138/55
[2019-03-12] MEDS ORDERED: ROPI0.5T2 PO (13:12)
[2019-03-12] MEDS ORDERED: FLUO20CA8 PO (13:12)
== END 2019-03-12 14:22 | disposition home or self-care (01) | DRG 885 ==
LOC: 3E 18:11
PROVIDERS: ADMIT Psychiatry & Neurology Psychosomatic Medicine; ATTEND Psychiatry & Neurology Psychosomatic Medicine
PROC: 5A1D70Z Performance of Urinary Filtration, Intermittent, Less than 6 Hours Per Day (ICD-10-PCS; principal; 2019-03-05)
PROC: 5A1D70Z Performance of Urinary Filtration, Intermittent, Less than 6 Hours Per Day (ICD-10-PCS; 2019-03-07)
PROC: 5A1D70Z Performance of Urinary Filtration, Intermittent, Less than 6 Hours Per Day (ICD-10-PCS; 2019-03-12)
DX: F31.30 Bipolar disorder, current episode depressed, mild or moderate severity, unspecified (principal); N18.6 End stage renal disease; I13.11 Hypertensive heart and chronic kidney disease without heart failure, with stage 5 chronic kidney disease, or end stage renal disease; R45.851 Suicidal ideations; E87.1 Hypo-osmolality and hyponatremia; D63.1 Anemia in chronic kidney disease; E78.5 Hyperlipidemia, unspecified; E87.5 Hyperkalemia; G25.81 Restless legs syndrome; G47.00 Insomnia, unspecified; I25.10 Atherosclerotic heart disease of native coronary artery without angina pectoris; J45.909 Unspecified asthma, uncomplicated; M81.0 Age-related osteoporosis without current pathological fracture; N25.0 Renal osteodystrophy; Z79.899 Other long term (current) drug therapy; Z91.5 Personal history of self-harm; Z99.2 Dependence on renal dialysis
CPT/HCPCS: 36415; 80069; 83970; 85014; 85018; 90935; 93005; 94640; J0881; J1644; J7620; J7626

== ENCOUNTER 2019-03-16 10:07 | Emergency (ER) | payer MEDICARE ==
[~2019-03-16] VITALS: Ht 152.4 cm; Wt 49.7 kg
[~2019-03-16 10:07] MED LIST changes: +CARV25TA12 PO; +DARB60VI SQ; +LISI-167 PO; +QUET100T PO; +ROPI0.5T2 PO
[2019-03-16] MEDS ORDERED: HYDR50TA13 PO (10:44)
[2019-03-16] MEDS ORDERED: LORazepam 2 MG/ML, 1ML ONE (10:47)
[2019-03-16] MEDS ORDERED: LORazepam 2 MG/ML, 1ML IM ONE (11:00)
[2019-03-16 11:30] VITALS: BP 164/62
[2019-03-16 11:54] LABS: ALBUMIN 3.2 g/dL (3.4-5.0); ANION GAP 10 mmol/L (5-15); CALCIUM 8.9 mg/dL (8.5-10.1); CHLORIDE 103 mmol/L (98-107); CREATININE 6.77 mg/dL (0.55-1.02)
== END 2019-03-16 12:34 | disposition home or self-care (01) ==
LOC: ED 12:28
DX: G25.3 Myoclonus (principal); T43.595A Adverse effect of other antipsychotics and neuroleptics, initial encounter; I12.0 Hypertensive chronic kidney disease with stage 5 chronic kidney disease or end stage renal disease; N18.6 End stage renal disease
CPT/HCPCS: 36415; 80048; 82040; 96372; 99283; J2060

== ENCOUNTER 2019-06-19 12:23 | Outpatient (CLI) | payer MEDICARE ==
[~2019-06-19 12:23] MED LIST changes: +FLUO20CA23 PO; -FLUO20CA8 PO; +HYDR50TA99 PO; +MONT10TA11 PO; -MONT10TA9 PO; -ROPI0.5T2 PO; +ROPI0.5T4 PO
== END 2019-06-19 23:59 | disposition home or self-care (01) ==
LOC: CFH 12:23
PROVIDERS: ATTEND Internal Medicine Cardiovascular Disease
DX: I08.3 Combined rheumatic disorders of mitral, aortic and tricuspid valves (principal)
CPT/HCPCS: 93306; 93356

== ENCOUNTER 2019-06-29 00:33 | Emergency (ER) | payer MEDICARE ==
[~2019-06-29] VITALS: Ht 152.4 cm; Wt 49.1 kg
--- NOTE | 2019-06-29 00:59 | NUR ---
DR BRONSON AT BEDSIDE TO ASSESS PT
[2019-06-29 01:26] LABS: BASOPHILS # (AUTO) 0.04 x10^3/uL (0-0.1); BASOPHILS % (AUTO) 1 % (0-1); EOSINOPHILS % (AUTO) 7 % (1-7); LYMPHOCYTES # (AUTO) 2.17 x10^3/uL (1-3.4); LYMPHOCYTES % (AUTO) 29 % (22-44); MD NO; MEAN CORPUSCULAR HEMOGLOBIN 29.3 pg (27.0-34.8); MEAN CORPUSCULAR HGB CONC 32.8 g/dL (32.4-35.8); MEAN CORPUSCULAR VOLUME 89.1 fL (80-100); MEAN PLATELET VOLUME 6.2 fL (7.4-10.4); MONOCYTES # (AUTO) 0.61 x10^3/uL (0.2-0.8); MONOCYTES % (AUTO) 8 % (2-9); NEUTROPHILS % (AUTO) 56 % (42-75); PLATELET COUNT 351 x10^3/uL (130-400); RED BLOOD COUNT 3.49 x10^6/uL (3.82-5.3); RED CELL DISTRIBUTION WIDTH 15.5 % (9.6-15.2)
[2019-06-29] MEDS ORDERED: LORazepam 1MG TABLET PO ONE (01:30)
[2019-06-29] MEDS ORDERED: DIPHENHYDRAMINE 25 MG CAPSULE PO ONE (01:30)
[2019-06-29] MEDS ORDERED: DIPHENHYDRAMINE 25 MG CAPSULE ONE (01:34)
[2019-06-29] MEDS ORDERED: LORazepam 1MG TABLET ONE (01:34)
[2019-06-29 01:38] VITALS: BP 157/65
[2019-06-29 01:38] LABS: ALANINE AMINOTRANSFERASE 11 U/L (12-78); ALBUMIN 3.2 g/dL (3.4-5.0); ANION GAP 6 mmol/L (5-15); CALCIUM 10.7 mg/dL (8.5-10.1); CHLORIDE 99 mmol/L (98-107); CREATININE 6.57 mg/dL (0.55-1.02)
--- NOTE | 2019-06-29 01:40 | NUR ---
PT MEDICATED PER MAR, VSS MARYANNN
[2019-06-29 01:43] LABS: ALKALINE PHOSPHATASE 71 U/L (45-117); BILIRUBIN,TOTAL 0.3 mg/dL (0.2-1.0); TOTAL PROTEIN 7.8 g/dL (6.4-8.2); TROPONIN I < 0.015 ng/mL (0.000-0.045)
--- NOTE | 2019-06-29 02:26 | NUR ---
TASK RN: PT PROVIDED D/C PAPERWORK AND EDUCATION BY THIS RN, ALL QUESTIONS ANSWERED, AMBULATED TO D/C DESK WITH STEADY GAIT. FAMILY TO DRIVE PT HOME.
== END 2019-06-29 02:28 | disposition home or self-care (01) ==
LOC: ED 01:09
DX: R07.89 Other chest pain (principal); I12.0 Hypertensive chronic kidney disease with stage 5 chronic kidney disease or end stage renal disease; N18.6 End stage renal disease; T43.595A Adverse effect of other antipsychotics and neuroleptics, initial encounter; Y92.89 Other specified places as the place of occurrence of the external cause; Z94.0 Kidney transplant status
CPT/HCPCS: 36415; 80053; 84484; 85025; 93005; 99284; Q0163

== ENCOUNTER 2019-07-01 04:42 | Emergency (ER) | payer MEDICARE ==
[~2019-07-01] VITALS: Ht 152.4 cm; Wt 48.6 kg
[2019-07-01] MEDS ORDERED: hydrOXyzine 50MG TABLET ONE (05:18)
[2019-07-01] MEDS ORDERED: hydrOXyzine 50MG TABLET PO ONE (05:30)
[2019-07-01] MEDS ORDERED: BENZTROPINE 1 MG/ML, 2 ML IM ONE (05:30)
[2019-07-01 05:31] LABS: BASOPHILS # (AUTO) 0.05 x10^3/uL (0-0.1); BASOPHILS % (AUTO) 1 % (0-1); EOSINOPHILS # (AUTO) 0.48 x10^3/uL (0-0.4); EOSINOPHILS % (AUTO) 7 % (1-7); LYMPHOCYTES % (AUTO) 28 % (22-44); MD NO; MEAN CORPUSCULAR HEMOGLOBIN 29.4 pg (27.0-34.8); MEAN CORPUSCULAR HGB CONC 32.7 g/dL (32.4-35.8); MEAN CORPUSCULAR VOLUME 90.2 fL (80-100); MEAN PLATELET VOLUME 5.9 fL (7.4-10.4); MONOCYTES # (AUTO) 0.57 x10^3/uL (0.2-0.8); MONOCYTES % (AUTO) 9 % (2-9); NEUTROPHILS # (AUTO) 3.78 x10^3/uL (1.8-6.8); NEUTROPHILS % (AUTO) 56 % (42-75); PLATELET COUNT 332 x10^3/uL (130-400); RED BLOOD COUNT 3.49 x10^6/uL (3.82-5.3); RED CELL DISTRIBUTION WIDTH 15.9 % (9.6-15.2)
--- NOTE | 2019-07-01 05:35 | NUR ---
PT RESTING ON GURNEY, MONITORS APPLIED, SIDERAILS UP X2, CALL LIGHT WITHIN REACH. PT MEDICATED PER MAR
[2019-07-01 05:43] LABS: ALBUMIN 3.2 g/dL (3.4-5.0); ANION GAP 10 mmol/L (5-15); CALCIUM 9.8 mg/dL (8.5-10.1); CHLORIDE 97 mmol/L (98-107); CREATININE 5.06 mg/dL (0.55-1.02)
[2019-07-01 06:28] VITALS: BP 157/85
--- NOTE | 2019-07-01 06:28 | NUR ---
PT RESTING ON GURNEY, MONITORS IN PLACE, DENIES NEEDS AT THIS TIME, CALL LIGHT WITHIN REACH
--- NOTE | 2019-07-01 06:59 | NUR ---
REPORT GIVEN TO MARCUS CONSTANTINO
== END 2019-07-01 07:07 | disposition home or self-care (01) ==
LOC: ED 05:25
DX: F41.1 Generalized anxiety disorder (principal); I12.9 Hypertensive chronic kidney disease with stage 1 through stage 4 chronic kidney disease, or unspecified chronic kidney disease; N18.3 Chronic kidney disease, stage 3 (moderate); F32.9 Major depressive disorder, single episode, unspecified
CPT/HCPCS: 36415; 80048; 82040; 85025; 96372; 99283; J0515

== ENCOUNTER 2019-07-04 02:29 | Emergency (ER) | payer MEDICARE ==
[~2019-07-04] VITALS: Ht 152.4 cm; Wt 50.0 kg
[2019-07-04] MEDS ORDERED: DIPHENHYDRAMINE 50 MG CAPSULE ONE (02:52)
[2019-07-04] MEDS ORDERED: DIPHENHYDRAMINE 50 MG CAPSULE PO PRN (03:00)
[2019-07-04 03:15] LABS: BASOPHILS # (AUTO) 0.03 x10^3/uL (0-0.1); BASOPHILS % (AUTO) 1 % (0-1); EOSINOPHILS # (AUTO) 0.53 x10^3/uL (0-0.4); EOSINOPHILS % (AUTO) 8 % (1-7); LYMPHOCYTES % (AUTO) 34 % (22-44); MD NO; MEAN CORPUSCULAR HEMOGLOBIN 29.2 pg (27.0-34.8); MEAN CORPUSCULAR HGB CONC 32.9 g/dL (32.4-35.8); MEAN CORPUSCULAR VOLUME 88.9 fL (80-100); MONOCYTES # (AUTO) 0.58 x10^3/uL (0.2-0.8); MONOCYTES % (AUTO) 9 % (2-9); NEUTROPHILS # (AUTO) 3.35 x10^3/uL (1.8-6.8); NEUTROPHILS % (AUTO) 49 % (42-75); PLATELET COUNT 323 x10^3/uL (130-400); RED BLOOD COUNT 3.59 x10^6/uL (3.82-5.3); RED CELL DISTRIBUTION WIDTH 16.2 % (9.6-15.2)
[2019-07-04 03:18] LABS: ALBUMIN 3.4 g/dL (3.4-5.0); ANION GAP 12 mmol/L (5-15); CALCIUM 10.5 mg/dL (8.5-10.1); CHLORIDE 95 mmol/L (98-107); CREATININE 6.64 mg/dL (0.55-1.02)
[2019-07-04 04:12] VITALS: BP 172/84
== END 2019-07-04 04:16 | disposition home or self-care (01) ==
LOC: ED 03:22
DX: G47.00 Insomnia, unspecified (principal); G24.9 Dystonia, unspecified; T43.3X5A Adverse effect of phenothiazine antipsychotics and neuroleptics, initial encounter; I12.9 Hypertensive chronic kidney disease with stage 1 through stage 4 chronic kidney disease, or unspecified chronic kidney disease; N18.9 Chronic kidney disease, unspecified; Y92.89 Other specified places as the place of occurrence of the external cause
CPT/HCPCS: 36415; 80048; 82040; 85025; 99283

== ENCOUNTER 2019-07-15 14:58 | Inpatient (IN) | payer MEDICARE ==
[~2019-07-15] VITALS: Ht 152.4 cm; Wt 46.8 kg
[2019-07-15] MEDS ORDERED: LOSA25TA25 PO (16:45)
[2019-07-15] MEDS ORDERED: HEPA50002 SQ (16:45)
[2019-07-15 17:30] VITALS: BP 152/69
[2019-07-15 18:23] VITALS: BP 152/69
[2019-07-15 20:00] VITALS: BP 188/69
[2019-07-16 07:20] VITALS: BP 173/68
[2019-07-16] MEDS: LOSARTAN 25MG TABLET PO SCH (08:22)
[2019-07-16] MEDS: SEVELAMER CARBONATE 800MG TAB PO SCH ×5 (08:22→20:35)
[2019-07-16] MEDS: AMLODIPINE 5 MG TABLET PO SCH ×2 (08:22→20:35)
[2019-07-16] MEDS: CARVEDILOL 25 MG TABLET PO SCH ×2 (08:23→20:35)
[2019-07-16] MEDS: HEPARIN 5,000 UNITS/ML, 1ML SQ SCH ×2 (08:23→20:36)
[2019-07-16] MEDS: CHOLECALCIFEROL 1,000 UNIT TABLET PO SCH (08:24)
[2019-07-16] MEDS: MONTELUKAST 10 MG TABLET PO SCH (08:24)
[2019-07-16] MEDS: CYANOCOBALAMIN 1,000 MCG TABLET PO SCH (08:24)
[2019-07-16] MEDS: OMEGA-3/FISH OIL CAPSULE PO SCH (08:43)
[2019-07-16 09:17] LABS: ANION GAP 12 mmol/L (5-15); CHLORIDE 96 mmol/L (98-107)
[2019-07-16 09:18] LABS: CREATININE 8.17 mg/dL (0.55-1.02)
[2019-07-16] MEDS ORDERED: DIPHENHYDRAMINE 50 MG CAPSULE ONE (13:51)
[2019-07-16] MEDS ORDERED: DIPHENHYDRAMINE 25 MG CAPSULE PO ONE (14:00)
[2019-07-16] MEDS: ESCITALOPRAM 10MG TABLET PO SCH (14:00)
[2019-07-16 19:46] VITALS: BP 112/63
[2019-07-16] MEDS: ROPINIROLE 0.5MG TABLET PO SCH (20:35)
[2019-07-16] MEDS: QUETIAPINE 100MG TABLET PO SCH (20:35)
[2019-07-16] MEDS: hydrOXyzine 50MG TABLET PO SCH (20:35)
[2019-07-16 22:36] VITALS: BP 167/76
[2019-07-16] MEDS ORDERED: TRAZODONE 50MG TABLET PO PRN (23:00)
[2019-07-16 23:06] LABS: CHOL/HDL RATIO 1.8; LDL/HDL RATIO 0.4 (0.5-3.0)
[2019-07-17] MEDS: SEVELAMER CARBONATE 800MG TAB PO SCH ×5 (05:15→19:59)
[2019-07-17 07:38] VITALS: BP 155/64
[2019-07-17] MEDS: AMLODIPINE 5 MG TABLET PO SCH ×2 (08:43→19:59)
[2019-07-17] MEDS: MONTELUKAST 10 MG TABLET PO SCH (08:43)
[2019-07-17] MEDS: HEPARIN 5,000 UNITS/ML, 1ML SQ SCH ×2 (08:43→19:59)
[2019-07-17] MEDS: OMEGA-3/FISH OIL CAPSULE PO SCH (08:43)
[2019-07-17] MEDS: CARVEDILOL 25 MG TABLET PO SCH ×2 (08:43→19:59)
[2019-07-17] MEDS: LOSARTAN 25MG TABLET PO SCH (08:44)
[2019-07-17] MEDS: ESCITALOPRAM 10MG TABLET PO SCH (08:44)
[2019-07-17] MEDS: CYANOCOBALAMIN 1,000 MCG TABLET PO SCH (08:44)
[2019-07-17] MEDS: CHOLECALCIFEROL 1,000 UNIT TABLET PO SCH (08:47)
[2019-07-17 19:50] VITALS: BP 144/62
[2019-07-17] MEDS: ROPINIROLE 0.5MG TABLET PO SCH (19:59)
[2019-07-17] MEDS: QUETIAPINE 100MG TABLET PO SCH (19:59)
[2019-07-17] MEDS: hydrOXyzine 50MG TABLET PO SCH (19:59)
[2019-07-17] MEDS: TRAZODONE 100MG TABLET PO PRN ×2 (21:41→22:59)
[2019-07-18] MEDS: SEVELAMER CARBONATE 800MG TAB PO SCH ×5 (06:04→21:10)
[2019-07-18 06:15] LABS: ANION GAP 11 mmol/L (5-15); CALCIUM 10.4 mg/dL (8.5-10.1); CHLORIDE 99 mmol/L (98-107); CREATININE 7.47 mg/dL (0.55-1.02)
[2019-07-18 07:49] VITALS: BP 160/57
[2019-07-18] MEDS ORDERED: DIPHENHYDRAMINE 50 MG CAPSULE ONE (08:07)
[2019-07-18] MEDS: CYANOCOBALAMIN 1,000 MCG TABLET PO SCH (08:10)
[2019-07-18] MEDS: HEPARIN 5,000 UNITS/ML, 1ML SQ SCH ×2 (08:10→21:12)
[2019-07-18] MEDS: CARVEDILOL 25 MG TABLET PO SCH ×2 (08:10→21:09)
[2019-07-18] MEDS: MONTELUKAST 10 MG TABLET PO SCH (08:10)
[2019-07-18] MEDS: CHOLECALCIFEROL 1,000 UNIT TABLET PO SCH (08:11)
[2019-07-18] MEDS: LOSARTAN 25MG TABLET PO SCH (08:11)
[2019-07-18] MEDS: OMEGA-3/FISH OIL CAPSULE PO SCH (08:11)
[2019-07-18] MEDS: ESCITALOPRAM 10MG TABLET PO SCH (08:11)
[2019-07-18] MEDS: AMLODIPINE 5 MG TABLET PO SCH ×2 (08:11→21:10)
[2019-07-18] MEDS ORDERED: DIPHENHYDRAMINE 50 MG CAPSULE PO PRN (08:30)
[2019-07-18 19:15] VITALS: BP 180/69
[2019-07-18] MEDS: QUETIAPINE 100MG TABLET PO SCH (21:10)
[2019-07-18] MEDS: TRAZODONE 100MG TABLET PO PRN (21:10)
[2019-07-18] MEDS: hydrOXyzine 50MG TABLET PO SCH (21:10)
[2019-07-18] MEDS: ROPINIROLE 0.5MG TABLET PO SCH (21:15)
[2019-07-19] MEDS: SEVELAMER CARBONATE 800MG TAB PO SCH ×5 (06:11→21:12)
[2019-07-19 06:24] LABS: ANION GAP 10 mmol/L (5-15); CHLORIDE 100 mmol/L (98-107); CREATININE 5.96 mg/dL (0.55-1.02)
[2019-07-19] MEDS: OMEGA-3/FISH OIL CAPSULE PO SCH (08:57)
[2019-07-19] MEDS: ESCITALOPRAM 10MG TABLET PO SCH (08:57)
[2019-07-19] MEDS: CARVEDILOL 25 MG TABLET PO SCH ×2 (09:00→21:12)
[2019-07-19] MEDS: LOSARTAN 25MG TABLET PO SCH (09:03)
[2019-07-19] MEDS: CYANOCOBALAMIN 1,000 MCG TABLET PO SCH (09:03)
[2019-07-19] MEDS: MONTELUKAST 10 MG TABLET PO SCH (09:03)
[2019-07-19] MEDS: CHOLECALCIFEROL 1,000 UNIT TABLET PO SCH (09:03)
[2019-07-19] MEDS: AMLODIPINE 5 MG TABLET PO SCH ×2 (09:03→21:12)
[2019-07-19] MEDS: HEPARIN 5,000 UNITS/ML, 1ML SQ SCH ×2 (09:04→21:13)
[2019-07-19 20:54] VITALS: BP 154/69
[2019-07-19] MEDS ORDERED: MELATONIN 5 MG TABLET PO SCH (21:00)
[2019-07-19] MEDS: hydrOXyzine 50MG TABLET PO SCH (21:12)
[2019-07-19] MEDS: ROPINIROLE 0.5MG TABLET PO SCH (21:12)
[2019-07-19] MEDS: QUETIAPINE 100MG TABLET PO SCH (21:13)
[2019-07-20] MEDS: SENNA/DOCUSATE TABLET PO PRN ×2 (01:53→14:41)
[2019-07-20 06:17] LABS: BASOPHILS # (AUTO) 0.07 x10^3/uL (0-0.1); BASOPHILS % (AUTO) 1 % (0-1); EOSINOPHILS # (AUTO) 0.67 x10^3/uL (0-0.4); EOSINOPHILS % (AUTO) 9 % (1-7); LYMPHOCYTES # (AUTO) 2.66 x10^3/uL (1-3.4); LYMPHOCYTES % (AUTO) 36 % (22-44); MD NO; MEAN CORPUSCULAR HEMOGLOBIN 30.2 pg (27.0-34.8); MEAN CORPUSCULAR HGB CONC 33.5 g/dL (32.4-35.8); MEAN PLATELET VOLUME 6.1 fL (7.4-10.4); MONOCYTES # (AUTO) 0.82 x10^3/uL (0.2-0.8); MONOCYTES % (AUTO) 11 % (2-9); NEUTROPHILS # (AUTO) 3.09 x10^3/uL (1.8-6.8); NEUTROPHILS % (AUTO) 42 % (42-75); PLATELET COUNT 388 x10^3/uL (130-400); RED BLOOD COUNT 3.13 x10^6/uL (3.82-5.3); RED CELL DISTRIBUTION WIDTH 17.1 % (9.6-15.2)
[2019-07-20] MEDS: SEVELAMER CARBONATE 800MG TAB PO SCH ×6 (06:21→20:48)
[2019-07-20 06:24] LABS: ANION GAP 11 mmol/L (5-15); CALCIUM 10.2 mg/dL (8.5-10.1); CHLORIDE 97 mmol/L (98-107)
[2019-07-20 07:00] VITALS: BP 166/68
[2019-07-20] MEDS ORDERED: DIPHENHYDRAMINE 50 MG CAPSULE ONE (07:42)
[2019-07-20] MEDS: DIPHENHYDRAMINE 50 MG CAPSULE PO PRN (07:48)
[2019-07-20] MEDS: HEPARIN 5,000 UNITS/ML, 1ML SQ SCH ×2 (07:49→20:54)
[2019-07-20] MEDS: OMEGA-3/FISH OIL CAPSULE PO SCH (08:05)
[2019-07-20] MEDS: ESCITALOPRAM 10MG TABLET PO SCH (08:06)
[2019-07-20] MEDS: CYANOCOBALAMIN 1,000 MCG TABLET PO SCH (08:06)
[2019-07-20] MEDS: MONTELUKAST 10 MG TABLET PO SCH (08:06)
[2019-07-20] MEDS: CHOLECALCIFEROL 1,000 UNIT TABLET PO SCH (08:06)
[2019-07-20] MEDS: AMLODIPINE 5 MG TABLET PO SCH ×2 (09:00→20:50)
[2019-07-20] MEDS: CARVEDILOL 25 MG TABLET PO SCH ×2 (09:00→20:50)
[2019-07-20] MEDS: LOSARTAN 50MG TABLET PO SCH (09:00)
[2019-07-20 12:30] VITALS: BP 106/57
[2019-07-20 19:44] VITALS: BP 159/69
[2019-07-20] MEDS: ROPINIROLE 0.5MG TABLET PO SCH (20:49)
[2019-07-20] MEDS: hydrOXyzine 50MG TABLET PO SCH (20:50)
[2019-07-20] MEDS: QUETIAPINE 100MG TABLET PO SCH (20:55)
[2019-07-20] MEDS: MELATONIN 5 MG TABLET PO SCH (20:55)
[2019-07-21 07:39] VITALS: BP 169/66
[2019-07-21] MEDS: OMEGA-3/FISH OIL CAPSULE PO SCH (08:55)
[2019-07-21] MEDS: CHOLECALCIFEROL 1,000 UNIT TABLET PO SCH (08:56)
[2019-07-21] MEDS: LOSARTAN 50MG TABLET PO SCH (08:56)
[2019-07-21] MEDS: ESCITALOPRAM 10MG TABLET PO SCH (08:56)
[2019-07-21] MEDS: AMLODIPINE 5 MG TABLET PO SCH ×2 (08:57→20:49)
[2019-07-21] MEDS: MONTELUKAST 10 MG TABLET PO SCH (08:57)
[2019-07-21] MEDS: CYANOCOBALAMIN 1,000 MCG TABLET PO SCH (08:57)
[2019-07-21] MEDS: CARVEDILOL 25 MG TABLET PO SCH ×2 (08:57→20:50)
[2019-07-21] MEDS: HEPARIN 5,000 UNITS/ML, 1ML SQ SCH ×2 (08:58→20:53)
[2019-07-21] MEDS: SEVELAMER CARBONATE 800MG TAB PO SCH ×5 (08:58→20:50)
[2019-07-21 19:28] VITALS: BP 179/66
[2019-07-21] MEDS: ROPINIROLE 0.5MG TABLET PO SCH (20:49)
[2019-07-21] MEDS: MELATONIN 5 MG TABLET PO SCH (20:50)
[2019-07-21] MEDS: QUETIAPINE 100MG TABLET PO SCH (20:50)
[2019-07-21] MEDS: hydrOXyzine 50MG TABLET PO SCH (20:50)
[2019-07-22 07:42] VITALS: BP 174/69
[2019-07-22] MEDS: SEVELAMER CARBONATE 800MG TAB PO SCH ×5 (08:33→21:06)
[2019-07-22] MEDS: CARVEDILOL 25 MG TABLET PO SCH ×2 (08:33→21:04)
[2019-07-22] MEDS: ESCITALOPRAM 10MG TABLET PO SCH (08:34)
[2019-07-22] MEDS: LOSARTAN 50MG TABLET PO SCH (08:34)
[2019-07-22] MEDS: AMLODIPINE 5 MG TABLET PO SCH ×2 (08:34→21:04)
[2019-07-22] MEDS: OMEGA-3/FISH OIL CAPSULE PO SCH (08:34)
[2019-07-22] MEDS: MONTELUKAST 10 MG TABLET PO SCH (08:35)
[2019-07-22] MEDS: CYANOCOBALAMIN 1,000 MCG TABLET PO SCH (08:35)
[2019-07-22] MEDS: CHOLECALCIFEROL 1,000 UNIT TABLET PO SCH (08:35)
[2019-07-22] MEDS: HEPARIN 5,000 UNITS/ML, 1ML SQ SCH ×2 (08:36→21:04)
[2019-07-22] MEDS: ARANESP 60 MCG/ML **ESRD SQ SCH ×2 (16:16→16:22)
[2019-07-22 19:15] VITALS: BP 185/74
[2019-07-22] MEDS: hydrOXyzine 50MG TABLET PO SCH (21:04)
[2019-07-22] MEDS: ROPINIROLE 0.5MG TABLET PO SCH (21:04)
[2019-07-22] MEDS: QUETIAPINE 100MG TABLET PO SCH (21:04)
[2019-07-22] MEDS: ZOLPIDEM 5MG TABLET PO SCH (21:04)
[2019-07-23 05:15] LABS: BASOPHILS # (AUTO) 0.07 x10^3/uL (0-0.1); BASOPHILS % (AUTO) 1 % (0-1); EOSINOPHILS # (AUTO) 0.37 x10^3/uL (0-0.4); EOSINOPHILS % (AUTO) 5 % (1-7); LYMPHOCYTES # (AUTO) 1.86 x10^3/uL (1-3.4); LYMPHOCYTES % (AUTO) 23 % (22-44); MD NO; MEAN CORPUSCULAR HEMOGLOBIN 29.5 pg (27.0-34.8); MEAN CORPUSCULAR HGB CONC 32.8 g/dL (32.4-35.8); MEAN CORPUSCULAR VOLUME 90.1 fL (80-100); MEAN PLATELET VOLUME 6.1 fL (7.4-10.4); MONOCYTES # (AUTO) 0.64 x10^3/uL (0.2-0.8); MONOCYTES % (AUTO) 8 % (2-9); NEUTROPHILS # (AUTO) 5.23 x10^3/uL (1.8-6.8); NEUTROPHILS % (AUTO) 64 % (42-75); PLATELET COUNT 395 x10^3/uL (130-400); RED BLOOD COUNT 3.58 x10^6/uL (3.82-5.3); RED CELL DISTRIBUTION WIDTH 17.6 % (9.6-15.2)
[2019-07-23 05:26] LABS: ANION GAP 11 mmol/L (5-15); CALCIUM 10.4 mg/dL (8.5-10.1); CHLORIDE 104 mmol/L (98-107)
[2019-07-23 05:30] LABS: ALANINE AMINOTRANSFERASE 17 U/L (12-78); ALKALINE PHOSPHATASE 52 U/L (45-117); BILIRUBIN,TOTAL 0.6 mg/dL (0.2-1.0); CREATININE 8.09 mg/dL (0.55-1.02); TOTAL PROTEIN 7.4 g/dL (6.4-8.2)
[2019-07-23 07:26] VITALS: BP 168/64
[2019-07-23] MEDS: CHOLECALCIFEROL 1,000 UNIT TABLET PO SCH (07:38)
[2019-07-23] MEDS: SEVELAMER CARBONATE 800MG TAB PO SCH ×5 (07:38→21:23)
[2019-07-23] MEDS: DIPHENHYDRAMINE 50 MG CAPSULE PO PRN (07:39)
[2019-07-23] MEDS: CYANOCOBALAMIN 1,000 MCG TABLET PO SCH (07:39)
[2019-07-23] MEDS: ESCITALOPRAM 10MG TABLET PO SCH (07:39)
[2019-07-23] MEDS: HEPARIN 5,000 UNITS/ML, 1ML SQ SCH ×2 (07:39→21:23)
[2019-07-23] MEDS: MONTELUKAST 10 MG TABLET PO SCH (07:39)
[2019-07-23] MEDS: OMEGA-3/FISH OIL CAPSULE PO SCH (07:39)
[2019-07-23] MEDS: CARVEDILOL 25 MG TABLET PO SCH ×2 (08:05→21:23)
[2019-07-23] MEDS: AMLODIPINE 5 MG TABLET PO SCH ×2 (08:05→21:23)
[2019-07-23] MEDS ORDERED: EPOETIN 40,000 UNITS/ML IVPush SCH (09:00)
[2019-07-23] MEDS: LOSARTAN 50MG TABLET PO SCH (12:58)
[2019-07-23] MEDS: ACETAMINOPHEN 325 MG TABLET PO PRN (15:53)
[2019-07-23 19:15] VITALS: BP 179/70
[2019-07-23] MEDS: ZOLPIDEM 5MG TABLET PO SCH (21:23)
[2019-07-23] MEDS: ROPINIROLE 0.5MG TABLET PO SCH (21:23)
[2019-07-23] MEDS: hydrOXyzine 50MG TABLET PO SCH (21:23)
[2019-07-23] MEDS: QUETIAPINE 100MG TABLET PO SCH (21:24)
[2019-07-24 00:21] VITALS: BP 130/60
[2019-07-24] MEDS: ACETAMINOPHEN 325 MG TABLET PO PRN (02:00)
[2019-07-24 07:44] VITALS: BP 180/69
[2019-07-24] MEDS: CHOLECALCIFEROL 1,000 UNIT TABLET PO SCH (09:03)
[2019-07-24] MEDS: CARVEDILOL 25 MG TABLET PO SCH ×2 (09:03→20:43)
[2019-07-24] MEDS: CYANOCOBALAMIN 1,000 MCG TABLET PO SCH (09:03)
[2019-07-24] MEDS: OMEGA-3/FISH OIL CAPSULE PO SCH (09:03)
[2019-07-24] MEDS: AMLODIPINE 5 MG TABLET PO SCH ×2 (09:03→20:44)
[2019-07-24] MEDS: LOSARTAN 50MG TABLET PO SCH (09:04)
[2019-07-24] MEDS: MONTELUKAST 10 MG TABLET PO SCH (09:04)
[2019-07-24] MEDS: HEPARIN 5,000 UNITS/ML, 1ML SQ SCH ×2 (09:04→20:43)
[2019-07-24] MEDS: ESCITALOPRAM 10MG TABLET PO SCH (09:04)
[2019-07-24] MEDS: SEVELAMER CARBONATE 800MG TAB PO SCH ×5 (09:10→20:44)
[2019-07-24 10:15] VITALS: BP 157/68
[2019-07-24] MEDS ORDERED: ESCI10TA PO (14:52)
[2019-07-24] MEDS ORDERED: QUET100T PO (14:52)
[2019-07-24] MEDS ORDERED: ZOLP-413 PO (14:52)
[2019-07-24 19:40] VITALS: BP 177/66
[2019-07-24] MEDS: ROPINIROLE 0.5MG TABLET PO SCH (20:42)
[2019-07-24] MEDS: hydrOXyzine 50MG TABLET PO SCH (20:42)
[2019-07-24] MEDS: ZOLPIDEM 5MG TABLET PO SCH (20:43)
[2019-07-24] MEDS: QUETIAPINE 100MG TABLET PO SCH (20:43)
[2019-07-25] MEDS ORDERED: ARANESP 60 MCG/ML **ESRD SQ SCH (07:36)
[2019-07-25 07:40] VITALS: BP 168/71
[2019-07-25] MEDS: ACETAMINOPHEN 325 MG TABLET PO PRN ×2 (07:43→13:01)
[2019-07-25] MEDS: ESCITALOPRAM 10MG TABLET PO SCH (07:43)
[2019-07-25] MEDS: OMEGA-3/FISH OIL CAPSULE PO SCH (07:43)
[2019-07-25] MEDS: DIPHENHYDRAMINE 50 MG CAPSULE PO PRN (07:43)
[2019-07-25] MEDS: SEVELAMER CARBONATE 800MG TAB PO SCH ×2 (07:43→12:17)
[2019-07-25] MEDS: MONTELUKAST 10 MG TABLET PO SCH (07:43)
[2019-07-25] MEDS: CYANOCOBALAMIN 1,000 MCG TABLET PO SCH (07:44)
[2019-07-25] MEDS: CHOLECALCIFEROL 1,000 UNIT TABLET PO SCH (07:45)
[2019-07-25] MEDS: HEPARIN 5,000 UNITS/ML, 1ML SQ SCH (07:46)
[2019-07-25] MEDS ORDERED: DIPHENHYDRAMINE 50 MG CAPSULE PO PRN (08:00)
[2019-07-25] MEDS: CARVEDILOL 25 MG TABLET PO SCH (09:17)
[2019-07-25] MEDS: LOSARTAN 50MG TABLET PO SCH (09:18)
[2019-07-25] MEDS: AMLODIPINE 5 MG TABLET PO SCH (09:18)
[2019-07-28] MEDS ORDERED: ARANESP 60 MCG/ML **ESRD SQ SCH (08:00)
== END 2019-07-25 14:25 | disposition home or self-care (01) | DRG 885 ==
LOC: 3E 17:05
PROVIDERS: ADMIT Psychiatry & Neurology Psychosomatic Medicine; ATTEND Psychiatry & Neurology Psychosomatic Medicine
PROC: 5A1D70Z Performance of Urinary Filtration, Intermittent, Less than 6 Hours Per Day (ICD-10-PCS; principal; 2019-07-16)
PROC: 5A1D70Z Performance of Urinary Filtration, Intermittent, Less than 6 Hours Per Day (ICD-10-PCS; 2019-07-18)
PROC: 5A1D70Z Performance of Urinary Filtration, Intermittent, Less than 6 Hours Per Day (ICD-10-PCS; 2019-07-20)
PROC: 5A1D70Z Performance of Urinary Filtration, Intermittent, Less than 6 Hours Per Day (ICD-10-PCS; 2019-07-23)
PROC: 5A1D70Z Performance of Urinary Filtration, Intermittent, Less than 6 Hours Per Day (ICD-10-PCS; 2019-07-25)
DX: F31.5 Bipolar disorder, current episode depressed, severe, with psychotic features (principal); N18.6 End stage renal disease; E87.1 Hypo-osmolality and hyponatremia; R45.851 Suicidal ideations; I12.0 Hypertensive chronic kidney disease with stage 5 chronic kidney disease or end stage renal disease; D63.1 Anemia in chronic kidney disease; E83.52 Hypercalcemia; E87.5 Hyperkalemia; E87.8 Other disorders of electrolyte and fluid balance, not elsewhere classified; F41.9 Anxiety disorder, unspecified; G25.3 Myoclonus; G25.81 Restless legs syndrome; G47.00 Insomnia, unspecified; J45.909 Unspecified asthma, uncomplicated; M81.0 Age-related osteoporosis without current pathological fracture; R62.7 Adult failure to thrive; R06.03 Acute respiratory distress; Z99.2 Dependence on renal dialysis; Z03.818 Encounter for observation for suspected exposure to other biological agents ruled out; Z91.09 Other allergy status, other than to drugs and biological substances; Z79.52 Long term (current) use of systemic steroids
CPT/HCPCS: 36415; 80048; 80053; 80061; 83735; 83930; 83935; 84100; 85025; 90935; J0882; J1644; 92523-GN; Q0163

== ENCOUNTER → 2019-10-25 | Outpatient (CLI) | payer MEDICARE ==
[~2019-10-25] MED LIST changes: +ACID1TAB7 PO; +BISA10SU4 PR; +DOXA1TAB PO; +ESCI10TA PO; +HEPA50002 SQ; +HYDR-3343 PO; +ISOS30TA21 PO; +LEVE500T53 PO; +LOSA25TA25 PO; +LOSA50TA2 PO; +POLY17PO5 PO; +ROPI1TAB4 PO; +SENN-193 PO; +ZOLP-413 PO
== END | disposition home or self-care (01) ==
LOC: CFH 08:08
PROVIDERS: ATTEND Neurological Surgery
DX: G31.89 Other specified degenerative diseases of nervous system (principal); R51 Headache; H05.20 Unspecified exophthalmos
CPT/HCPCS: 70450

== ENCOUNTER 2019-11-12 22:32 | Emergency (ER) | payer MEDICARE ==
[~2019-11-12] VITALS: Ht 152.4 cm; Wt 41.7 kg
[~2019-11-12 22:32] MED LIST changes: +ASCO100018 PO; -ASCO10004 PO; +HYDR100T25 PO; +LEVE250T5 PO
--- NOTE | 2019-11-12 22:41 | NUR ---
triage note: EKG done in triage
--- NOTE | 2019-11-12 23:02 | NUR ---
PER SON, PT HAD BEEN CONFUSED AFTER HITTING HER HEAD AGAINST THE WALL WHEN GOING TO BED APPROX [address] CONFIRMED AN ANEURYSM, PT WAS ADMITTED FOR A CRANIOTOMY. PT WAS D/C'D BUT THEN RETURNED TO [facility] WHERE SHE WAS ADMITTED AND THEN D/C'D 2 DAYS AGO. PT HAS HAD MULTIPLE RX DRUG CHANGES. SHE'S BEEN UNABLE TO "KEEP ANYTHING DOWN THE PAST 2 DAYS" WHICH IS THE PRIMARY CONCERN FOR THIS VISIT. PT A&OX4, NO COMPLAINTS OF PAIN, CONNECTED TO BP, CARDIAC AND O2 MONITORS. ERP TO BEDSIDE.
[2019-11-12] MEDS ORDERED: ONDANSETRON ODT 4 MG ONE (23:08)
[2019-11-12 23:19] LABS: BASOPHILS # (AUTO) 0.03 x10^3/uL (0-0.1); BASOPHILS % (AUTO) 0 % (0-1); EOSINOPHILS % (AUTO) 1 % (1-7); LYMPHOCYTES # (AUTO) 1.02 x10^3/uL (1-3.4); LYMPHOCYTES % (AUTO) 11 % (22-44); MD NO; MEAN CORPUSCULAR HEMOGLOBIN 29.1 pg (27.0-34.8); MEAN CORPUSCULAR HGB CONC 31.9 g/dL (32.4-35.8); MEAN CORPUSCULAR VOLUME 91.3 fL (80-100); MEAN PLATELET VOLUME 7.2 fL (7.4-10.4); MONOCYTES # (AUTO) 0.73 x10^3/uL (0.2-0.8); MONOCYTES % (AUTO) 8 % (2-9); NEUTROPHILS # (AUTO) 7.54 x10^3/uL (1.8-6.8); NEUTROPHILS % (AUTO) 80 % (42-75); PLATELET COUNT 345 x10^3/uL (130-400); RED BLOOD COUNT 3.61 x10^6/uL (3.82-5.3); RED CELL DISTRIBUTION WIDTH 18.6 % (9.6-15.2)
--- NOTE | 2019-11-12 23:19 | NUR ---
Cristina senior in [facility] - 11/13/19 at 0001 by JAZMIN PT TO IMAGING.
[2019-11-12 23:28] LABS: ALANINE AMINOTRANSFERASE 7 U/L (12-78); ALBUMIN 3.4 g/dL (3.4-5.0); ANION GAP 7 mmol/L (5-15); CALCIUM 10.7 mg/dL (8.5-10.1); CHLORIDE 95 mmol/L (98-107); CREATININE 5.07 mg/dL (0.55-1.02)
[2019-11-12 23:30] LABS: ALKALINE PHOSPHATASE 71 U/L (45-117); BILIRUBIN,TOTAL 0.5 mg/dL (0.2-1.0); TOTAL PROTEIN 7.6 g/dL (6.4-8.2)
[2019-11-12] MEDS ORDERED: ONDANSETRON ODT 4 MG PO ONE (23:30)
--- NOTE | 2019-11-13 00:01 | NUR ---
PT BACK FROM IMAGING AT THIS TIME.
--- NOTE | 2019-11-13 00:10 | NUR ---
PT STATES MINIMAL RELEIF FROM NAUSEA, "IT COMES AND GOES." PT HAS NOT ACTIVELY VOMITTED ANY SUBSTANCE.
--- NOTE | 2019-11-13 00:35 | NUR ---
PT REMAINS A&OX4. SCANT AMOUNT OF VOMIT NOTED IN EMISIS BAG. ERP MADE AWARE. AWAITING ORDERS.
[2019-11-13] MEDS ORDERED: PROMETHAZINE 25 MG/ML, 1ML ONE (00:42)
--- NOTE | 2019-11-13 00:56 | NUR ---
ERP TO BEDSIDE TO UPDATE PT ON POC. PT AND SON EDUCATED THAT PT CAN START HAVING SIPS OF WATER AT 0100, AFTER ALLOWING THE MEDICATION TIME TO METABOLIZE.
[2019-11-13] MEDS ORDERED: PROMETHAZINE 25 MG/ML, 1ML IM ONE (01:00)
--- NOTE | 2019-11-13 01:48 | NUR ---
BREAK RN: PATIENT HAD AN EPISODE OF DRY HEAVING. NO VOMIT NOTED. DISCHARGED WITH PRESCRIPTIONS AND INSTRUCTION GIVEN TO SON. VERBALIZED UNDERSTANDING.
[2019-11-13 01:50] VITALS: BP 164/79
== END 2019-11-13 01:52 | disposition home or self-care (01) ==
LOC: ED 11-13 01:45
DX: R11.2 Nausea with vomiting, unspecified (principal); I12.0 Hypertensive chronic kidney disease with stage 5 chronic kidney disease or end stage renal disease; N18.6 End stage renal disease; R94.31 Abnormal electrocardiogram [ECG] [EKG]; J45.909 Unspecified asthma, uncomplicated; Z87.891 Personal history of nicotine dependence
CPT/HCPCS: 36415; 70450; 80053; 85025; 93005; 96372; 99285; J2550; Q0162

== ENCOUNTER 2020-01-17 16:15 | Emergency (ER) | payer MEDICARE ==
[~2020-01-17] VITALS: Ht 152.4 cm; Wt 46.0 kg
[~2020-01-17 16:15] MED LIST changes: -ALEN70TA6 PO; +ALEN70TA66 PO
--- NOTE | 2020-01-17 16:49 | NUR ---
BIB [facility], PT WITH COMPLAINTS OF NAUSEA, DRY HEAVES, CONTSTIPATION X3 DAYS. LBM TODAY "I FORCED SOME OUT", PRIOR TO TODAY LAST BM 4 DAYS AGO. PT WITH NO VOMITTING, D/T "NOT EATING ANYTHING FOR THREE DAYS" PT TO BP, CONT PULSE OX. 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
[2020-01-17] MEDS ORDERED: SODIUM CHLORIDE FLUSH 10ML SYR IVF ONE (17:30)
[2020-01-17] MEDS ORDERED: SODIUM CHLORIDE 0.9% 1,000 ML IV ONE (17:30)
--- NOTE | 2020-01-17 17:45 | NUR ---
PIV INITIATED, FLUIDS BEGAN ORDERED.
[2020-01-17 17:58] LABS: BASOPHILS % (AUTO) 1 % (0-1); EOSINOPHILS % (AUTO) 5 % (1-7); LYMPHOCYTES % (AUTO) 33 % (22-44); MEAN CORPUSCULAR HEMOGLOBIN 29.8 pg (27.0-34.8); MEAN CORPUSCULAR HGB CONC 32.7 g/dL (32.4-35.8); MEAN PLATELET VOLUME 6.4 fL (7.4-10.4); MONOCYTES % (AUTO) 10 % (2-9); NEUTROPHILS % (AUTO) 50 % (42-75); PLATELET COUNT 260 x10^3/uL (130-400); RED BLOOD COUNT 3.87 x10^6/uL (3.82-5.3); RED CELL DISTRIBUTION WIDTH 17.4 % (9.6-15.2)
[2020-01-17 18:02] LABS: MD NO
[2020-01-17 18:08] LABS: ALANINE AMINOTRANSFERASE 15 U/L (12-78); ALBUMIN 3.3 g/dL (3.4-5.0); ANION GAP 7 mmol/L (5-15); CALCIUM 10.9 mg/dL (8.5-10.1); CHLORIDE 101 mmol/L (98-107)
[2020-01-17 18:10] LABS: ALKALINE PHOSPHATASE 61 U/L (45-117); BILIRUBIN,TOTAL 0.7 mg/dL (0.2-1.0); TOTAL PROTEIN 7.4 g/dL (6.4-8.2)
[2020-01-17] MEDS ORDERED: ISOSORBIDE DINITRATE 30 MG TABLET PO ONE (18:30)
[2020-01-17] MEDS ORDERED: LOSARTAN 50MG TABLET PO ONE (18:30)
[2020-01-17] MEDS ORDERED: METOCLOPRAMIDE 5 MG/ML, 2ML IVPush ONE (18:30)
[2020-01-17] MEDS ORDERED: hydrALAzine 20 MG/ML, 1ML IV ONE (18:30)
[2020-01-17] MEDS ORDERED: METOCLOPRAMIDE 5 MG/ML, 2ML ONE (18:47)
--- NOTE | 2020-01-17 20:15 | NUR ---
PT TO CT AT THIS TIME, VSS, AMBULATED TO BATHROOM WITH ASSISST
[2020-01-17 21:03] VITALS: BP 167/63
== END 2020-01-17 20:07 | disposition home or self-care (01) ==
LOC: ED 16:58
DX: I12.0 Hypertensive chronic kidney disease with stage 5 chronic kidney disease or end stage renal disease (principal); N18.6 End stage renal disease; K59.00 Constipation, unspecified; R11.0 Nausea; R53.1 Weakness; R51.9 Headache, unspecified; I10 Essential (primary) hypertension
CPT/HCPCS: 36415; 70450; 74018; 80053; 83690; 83735; 85025; 96374; 99285; J2765; J7030

== ENCOUNTER 2020-05-26 11:53 | Outpatient (CLI) | payer MEDICARE ==
[~2020-05-26 11:53] MED LIST changes: -ALEN70TA66 PO; +ALEN70TA77 PO; -ESCI10TA PO; +ESCI10TA97 PO; +FENTANYL PF 100 MCG/2ML ONE; +MIDAZOLAM 1 MG/ML, 5ML ONE; -MONT10TA11 PO; +MONT10TA17 PO
[2020-05-27] MEDS ORDERED: ZINC220T2 PO (22:46)
[2020-05-27] MEDS ORDERED: ATOR40TA78 PO (22:46)
[2020-05-27] MEDS ORDERED: QUET100T4 PO (22:46)
[2020-05-27] MEDS ORDERED: FOLI0.8T22 PO (22:46)
[2020-05-27] MEDS ORDERED: ROPI2TAB8 PO (22:46)
[2020-05-28] MEDS ORDERED: FURO80TA77 PO (03:34)
[2020-05-28] MEDS ORDERED: CINA30TA6 PO (03:36)
[2020-05-31] MEDS ORDERED: CEFD300C37 PO (12:20)
== END 2020-05-26 23:59 | disposition home or self-care (01) ==
LOC: RAD 11:53 → EDSTATUS 12:45 → RAD 23:59
PROVIDERS: ATTEND Physician Assistant
DX: M54.12 Radiculopathy, cervical region (principal); I12.0 Hypertensive chronic kidney disease with stage 5 chronic kidney disease or end stage renal disease; N18.6 End stage renal disease
CPT/HCPCS: 72141; 99156; 99157; J2250; J3010

== ENCOUNTER 2020-06-04 02:28 | Emergency (ER) | payer MEDICARE ==
[~2020-06-04] VITALS: Ht 152.4 cm; Wt 40.0 kg
[~2020-06-04 02:28] MED LIST changes: +ATOR40TA78 PO; +CEFD300C37 PO; +CINA30TA6 PO; -FENTANYL PF 100 MCG/2ML ONE; +FOLI0.8T22 PO; +FURO80TA77 PO; -MIDAZOLAM 1 MG/ML, 5ML ONE; +QUET100T4 PO; +ROPI2TAB8 PO; +ZINC220T2 PO
--- NOTE | 2020-06-04 02:39 | NUR ---
PT BIB EMS FROM HOME FOR CP THAT BEGAN APPROXIMATELY 45 MINS AGO. PT RECENTLY SEEN HERE FOR PNA, DC'D TUESDAY. PT REPORTS CP WOKE HER OUT OF HER SLEEP AND IS 10/10 WORSE ON INSPIRATION AND PALPATION, PRIMARLY ON THE RIGHT SIDE, NON RADIATING, DESCRIBED SHARP. PT ALSO REPORTS LEFT KNEE PAIN. PT IS A DIALYSIS PT MWF. LEFT SIDE FISTULA. EKG OBTAINED, PT PLACED ON SPO2/BP/ECG MONITORING, BED IN LOWEST, RAILS ENGAGED, CALL LIGHT ON LAP. NOW STATES PAIN IS 3/10, APPEARS COMFORTABLE, WCTM. TOOK 325 ASA AT HOME, 50MCG [place]
[2020-06-04 03:17] LABS: BASOPHILS % (AUTO) 1 % (0-1); EOSINOPHILS % (AUTO) 4 % (1-7); LYMPHOCYTES % (AUTO) 14 % (22-44); MEAN CORPUSCULAR HEMOGLOBIN 30.5 pg (27.0-34.8); MEAN CORPUSCULAR HGB CONC 33.2 g/dL (32.4-35.8); MEAN PLATELET VOLUME 6.6 fL (7.4-10.4); MONOCYTES % (AUTO) 13 % (2-9); NEUTROPHILS % (AUTO) 69 % (42-75); PLATELET COUNT 257 x10^3/uL (130-400); RED BLOOD COUNT 3.31 x10^6/uL (3.82-5.3); RED CELL DISTRIBUTION WIDTH 17.6 % (9.6-15.2)
[2020-06-04 03:20] LABS: MD NO
[2020-06-04 03:30] LABS: ALBUMIN 3.4 g/dL (3.4-5.0); ANION GAP 9 mmol/L (5-15); CALCIUM 10.6 mg/dL (8.5-10.1); CHLORIDE 97 mmol/L (98-107); CREATININE 7.12 mg/dL (0.55-1.02)
--- NOTE | 2020-06-04 03:30 | NUR ---
PT RESTING ON GURSHERRELL, NAD, APPEARS COMFORTABLE, SON AT BS, NO CHANGE IN CONDITION, VSS, WCTM. WAITING FOR TEST RESULTS.
[2020-06-04 03:34] LABS: TROPONIN I < 0.015 ng/mL (0.000-0.045)
--- NOTE | 2020-06-04 04:08 | NUR ---
SON CHASIDY [phone]...GRAND SON CHASIDY [phone]
--- NOTE | 2020-06-04 04:53 | NUR ---
PT RESTING ON GURNEY, NAD, APPEARS COMFORTABLE, BED IN LOWEST, RAILS ENGAGED, CALL LIGHT ON LAP, PT IS RESTING AND WHEN AWAKE OCCASSIONALLY GROANING STATING SHE IS IN PAIN, ERP AWARE NO NEW ORDERS AT THIS TIME D/T PT DROWSINESS. PT VSS. OBSERVATION AT THIS TIME. WCTM.
--- NOTE | 2020-06-04 06:18 | NUR ---
pt is awake and moving around, no longer complaining of pain or discomfort, vss, provided ice chips and heater for comfort, wctm.
[2020-06-04 07:01] VITALS: BP 156/81
--- NOTE | 2020-06-04 07:01 | NUR ---
report to bobby tavares, pt care transferred at this time.
--- NOTE | 2020-06-04 07:11 | NUR ---
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
--- NOTE | 2020-06-04 07:48 | NUR ---
FAMILY HERE FOR DC. PT GIVEN INSTRUCTIONS FOR DC. CONFIRMS UNDERSTANDS INSTRUCTIONS. WHEELCHAIR PROVED FOR DC.
== END 2020-06-04 07:49 | disposition home or self-care (01) ==
LOC: ED 03:10
DX: R07.89 Other chest pain (principal); I12.0 Hypertensive chronic kidney disease with stage 5 chronic kidney disease or end stage renal disease; N18.6 End stage renal disease; R94.31 Abnormal electrocardiogram [ECG] [EKG]; J45.909 Unspecified asthma, uncomplicated; Z87.891 Personal history of nicotine dependence
CPT/HCPCS: 36415; 71045; 80048; 82040; 84484; 85025; 93005; 99285

== ENCOUNTER 2020-10-26 00:29 | Emergency (ER) | payer MEDICARE ==
[~2020-10-26] VITALS: Ht 152.4 cm; Wt 45.0 kg
[~2020-10-26 00:29] MED LIST changes: -QUET100T PO; +QUET100T2 PO; +ROPI3TAB4 PO; +Rena-Vite PO; +SEVE800T7 PO
[2020-10-26 01:35] LABS: BASOPHILS % (AUTO) 2 % (0-1); EOSINOPHILS % (AUTO) 6 % (1-7); LYMPHOCYTES % (AUTO) 27 % (22-44); MEAN CORPUSCULAR HEMOGLOBIN 31.9 pg (27.0-34.8); MEAN CORPUSCULAR HGB CONC 33.2 g/dL (32.4-35.8); MEAN PLATELET VOLUME 6.3 fL (7.4-10.4); MONOCYTES % (AUTO) 12 % (2-9); NEUTROPHILS % (AUTO) 53 % (42-75); PLATELET COUNT 268 x10^3/uL (130-400); RED BLOOD COUNT 2.61 x10^6/uL (3.82-5.3); RED CELL DISTRIBUTION WIDTH 14.7 % (9.6-15.2)
--- NOTE | 2020-10-26 01:41 | NUR ---
PT CALLED FOR ROOM. NA X 1
[2020-10-26 01:44] LABS: ALANINE AMINOTRANSFERASE 9 U/L (12-78); ALBUMIN 2.9 g/dL (3.4-5.0); ANION GAP 8 mmol/L (5-15); CHLORIDE 99 mmol/L (98-107); CREATININE 6.43 mg/dL (0.55-1.02)
[2020-10-26 01:46] LABS: ALKALINE PHOSPHATASE 89 U/L (45-117); BILIRUBIN,TOTAL 0.4 mg/dL (0.2-1.0); TOTAL PROTEIN 7.2 g/dL (6.4-8.2)
[2020-10-26] MEDS ORDERED: DIPHENHYDRAMINE 25 MG CAPSULE ONE ×2 (02:38)
[2020-10-26] MEDS ORDERED: LORazepam 1MG TABLET ONE (02:44)
[2020-10-26 02:45] VITALS: BP 157/59
[2020-10-26] MEDS ORDERED: LORazepam 1MG TABLET PO ONE (03:00)
[2020-10-26] MEDS ORDERED: DIPHENHYDRAMINE 25 MG CAPSULE PO ONE (03:00)
== END 2020-10-26 03:20 | disposition home or self-care (01) ==
LOC: ED 00:40
DX: F41.1 Generalized anxiety disorder (principal); M62.838 Other muscle spasm
CPT/HCPCS: 36415; 80053; 85025; 99283

== ENCOUNTER 2020-11-22 18:24 | Emergency (ER) | payer MEDICARE ==
[~2020-11-22] VITALS: Ht 152.4 cm; Wt 41.0 kg
--- NOTE | 2020-11-22 19:00 | NUR ---
PT BIB DAUGHTER. PER PT "I HAVE HAD LIQUID DIARRHEA FOR 3 STRAIGHT DAYS. I FEEL AWFUL WEAK." PT ALSO REPORTS THAT SHE HAD DIALYSIS TODAY. DAUGHTER AT BEDSIDE, PT RESTING IN [facility], MONITORING IN PLACE, ROBERT AT THIS TIME, SUSHILA.
[2020-11-22] MEDS ORDERED: SODIUM CHLORIDE 0.9% 1,000ML IVBOLUS ONE (20:00)
[2020-11-22] MEDS ORDERED: SODIUM CHLORIDE FLUSH 10ML SYR IVF ONE (20:00)
[2020-11-22 20:14] VITALS: BP 137/74
[2020-11-22 20:20] LABS: BASOPHILS % (AUTO) 1 % (0-1); EOSINOPHILS % (AUTO) 4 % (1-7); LYMPHOCYTES % (AUTO) 23 % (22-44); MEAN CORPUSCULAR HEMOGLOBIN 33.1 pg (27.0-34.8); MEAN CORPUSCULAR HGB CONC 33.6 g/dL (32.4-35.8); MEAN PLATELET VOLUME 6.9 fL (7.4-10.4); MONOCYTES % (AUTO) 10 % (2-9); NEUTROPHILS % (AUTO) 62 % (42-75); PLATELET COUNT 156 x10^3/uL (130-400); RED BLOOD COUNT 2.51 x10^6/uL (3.82-5.3); RED CELL DISTRIBUTION WIDTH 14.7 % (9.6-15.2)
[2020-11-22 20:22] LABS: ALANINE AMINOTRANSFERASE 27 U/L (12-78); ALBUMIN 2.9 g/dL (3.4-5.0); CALCIUM 8.8 mg/dL (8.5-10.1); CHLORIDE 100 mmol/L (98-107); CREATININE 4.29 mg/dL (0.55-1.02)
[2020-11-22 20:25] LABS: ALKALINE PHOSPHATASE 76 U/L (45-117); BILIRUBIN,TOTAL 0.7 mg/dL (0.2-1.0); TOTAL PROTEIN 6.9 g/dL (6.4-8.2)
[2020-11-22 20:32] LABS: ANION GAP 4 mmol/L (5-15)
--- NOTE | 2020-11-22 21:08 | NUR ---
REPORT TO MARCUS RODRIGUEZ.
[2020-11-22] MEDS ORDERED: LORazepam 1MG TABLET PO ONE (21:30)
[2020-11-22] MEDS ORDERED: LORazepam 1MG TABLET ONE (21:34)
== END 2020-11-22 21:50 | disposition home or self-care (01) ==
LOC: ED 19:00
DX: R19.7 Diarrhea, unspecified (principal); R53.1 Weakness; R53.83 Other fatigue; I10 Essential (primary) hypertension; J45.909 Unspecified asthma, uncomplicated; Z87.891 Personal history of nicotine dependence
CPT/HCPCS: 36415; 74021; 80053; 83690; 85025; 99284; J7030